=== PATIENT | male | born 1930 | race African-American/Black ===

== ENCOUNTER 2018-07-28 08:29 | Inpatient (IN) | payer MEDICARE ==
[2018-07-28 09:27] LABS: #Lymphocytes 1.2 thou/uL (1.20-3.40); #Monocytes 0.8 thou/uL (0.11-0.59); #Neutrophils 9.5 thou/uL (1.40-6.50); %Basophils 0.2 % (0.0-1.0); %Eosinophils 0.4 % (0.0-10.0); %Lymphocytes 10.6 % (21.0-51.0); %Monocytes 7.2 % (0.0-10.0); %Neutrophils 81.6 % (42.0-75.0); Hemoglobin 15.8 g/dL (14.0-18.0); Mean Corpuscular HGB CONC 31.8 g/dL (32.0-36.0); Mean Corpuscular Hemoglobin 28.9 pg (27.0-31.0); Mean Corpuscular Volume 90.8 fL (78.0-98.0); Mean Platelet Volume 7.8 fL (7.4-10.4); Platelet Count 178 thou/uL (130-400); RBC Distribution Width 13.7 % (11.5-14.5); Red Blood Cell (RBC) Count 5.46 mill/uL (4.70-6.10); White Blood Cell (WBC) Count 11.7 thou/uL (4.8-10.8)
[2018-07-28 11:08] LABS: Bilirubin Small (Negative); Blood, Urine Trace (Negative); Glucose, Urine (Dipstick) Negative (Negative); Leukocyte Negative (Negative); Nitrite Negative (Negative); Protein, Urine (Dipstick) Trace mg/dL (Neg-Trace); Urobilinogen 0.2 mg/dL (0.2-1.0); pH, Urine 5.5 (5.0-9.0)
[2018-07-28 11:13] LABS: Clarity Clear (Clear); Specific Gravity, Urine 1.022 (1.002-1.036)
[2018-07-28] MEDS ORDERED: Iopamidol 370 76% 100 ML VIAL ONE (11:19)
[2018-07-28 11:22] LABS: Bacteria/HPF None Seen HPF (None Seen); Hyaline Casts/LPF 0-3 HYALINE CAST LPF (0-3 Hyaline); Squamous Epithelial 0-3 HPF (0-3); WBC/HPF 0-3 HPF (0-3)
[2018-07-28 11:34] LABS: Albumin 5.1 g/dL (3.4-4.8); Chloride 103 mmol/L (98-107); Globulin 3.9 g/dL (2.4-3.5); Glucose 139 mg/dL (83-110); Potassium 4.1 mmol/L (3.5-5.1); Sodium 143 mmol/L (136-145)
[2018-07-28 11:37] LABS: Carbon Dioxide 24 mmol/L (23-31)
[2018-07-28 11:38] LABS: Anion Gap 20 mmol/L (10-20); BUN (Urea Nitrogen) 27 mg/dL (8.4-25.7); Calc. Creatinine Clearance 0 mL/min (70-130); Estimated GFR-MDRD 46
[2018-07-28 11:41] LABS: ALT (SGPT) 18 U/L (8-55); AST (SGOT) 26 U/L (5-34); Alkaline Phosphatase 91 U/L (40-150); Bilirubin, Total 1.4 mg/dL (0.2-1.2); Calcium 12.1 mg/dL (7.8-10.44); Lipase 7 U/L (8-78)
[2018-07-28] MEDS ORDERED: Benzonatate 100 MG CAP PO PRN (13:45)
[2018-07-28] MEDS ORDERED: cloNIDine 0.1 MG TAB PO PRN (13:45)
[2018-07-28] MEDS ORDERED: Acetaminophen 325 MG TAB PO PRN (13:45)
[2018-07-28] MEDS ORDERED: Bisacodyl 5 MG TAB PO PRN (13:45)
[2018-07-28] MEDS ORDERED: Ondansetron PF 4 MG/2 ML Vial IVP PRN ×2 (13:45)
[2018-07-28] MEDS ORDERED: Diabetic Tussin 200 MG/10 ML UDCUP PO PRN (13:45)
[2018-07-28] MEDS ORDERED: Calcium Carbonate 500 MG ChewTAB PO PRN (13:45)
[2018-07-28] MEDS ORDERED: hydrALAZINE 20 MG/ML VIAL SLOW IVP PRN (13:45)
[2018-07-28] MEDS ORDERED: Senokot S 8.6-50 MG TAB PO PRN ×2 (13:45)
[2018-07-28] MEDS ORDERED: Nitroglycerin 0.4 MG TAB (25 Tab Bottle) SL PRN (13:45)
[2018-07-28] MEDS ORDERED: Polyethylene Glycol 3350 17 GM Packet PO PRN (13:59)
[2018-07-28] MEDS ORDERED: Amlodipine 5 MG TAB PO SCH (14:00)
--- NOTE | 2018-07-28 14:57 | HP ---
PRIMARY CARE PHYSICIAN: None. CHIEF COMPLAINT: Inability to urinate and abdominal discomfort due to this. HISTORY OF PRESENTING ILLNESS: Mr. Correa is an 88-year-old male with unknown past medical history as he does not follow up with any physicians, who presented to the ER with above-mentioned complaint. History is mainly obtained by his son and [id number] present in the room. The patient is a very poor historian. Does not talk much and is also unfortunately extremely hard of hearing. When asked, he states that he has not been able to urinate for the last 2 weeks properly. For the last week, he only dribbles just few drops. He was also having some discomfort in the abdomen due to this and decided that it is time to get it checked out. He denies any nausea or vomiting, but he is also very constipated. Denies any blood in his urine whenever he is able to pee few drops. There is no blood in his stools. He has about 10-pound weight loss over the course of 1 year, but his appetite has been good. He denies any fever, chills, or night sweats. Upon presentation to the emergency room, he was quite hypertensive with a blood pressure of 177/99, pulse of 73, saturating 100% on room air, respirations 18. His workup showed acute renal insufficiency with creatinine 1.71 and hypercalcemia with a calcium of 12.1. Urinalysis had a trace blood in bilirubin, otherwise unremarkable. He is now being admitted for urinary retention and hypercalcemia. He has not received any treatment in the ER so far. However, Amador catheter has been placed in, which showed return of almost a liter of normal colored somewhat maybe dark urine. PAST MEDICAL HISTORY: None. According to the patient, he does not take any medication, but appears to have undiagnosed hypertension. PAST SURGICAL HISTORY: No surgeries done to him according to himself. SOCIAL HISTORY: The patient lives alone by himself and is fairly independent. His family lives close by and help him if he needs to. CODE STATUS: Full code discussed with the patient and his family members present at bedside. HOME MEDICATIONS: None. ALLERGIES: NONE. FAMILY HISTORY: No significant family history of any carcinomas. There is no history of premature coronary artery disease or stroke. REVIEW OF SYSTEMS: A 12-point review of systems is done and is negative except for those mentioned in history and physical. LABORATORY DATA: His CBC shows WBCs of 11.7 with 81% neutrophils, otherwise the differential is unremarkable. Serum chemistries show BUN of 27, creatinine 1.71, calcium of 12.1, total bilirubin 1.4. LFTs otherwise unremarkable. Blood sugar 139, total protein 9.0, albumin 5.1, globulin 3.9. Urinalysis, trace blood and small bilirubin, otherwise unremarkable. PHYSICAL EXAMINATION: VITAL SIGNS: Upon presentation; blood pressure 173/99, pulse of 73, respirations 18, saturating 100% on room air, and temperature 98.5. GENERAL: No acute distress. Lying comfortably in bed. Awake, alert, and oriented x3. HEENT: Mucous membrane is slightly dry. No oropharyngeal exudate or erythema. Head is normocephalic and atraumatic. Pupils are equal and reactive to light and accommodation. Extraocular movement intact. NECK: Supple without any lymphadenopathy, JVD, or bruit. CHEST: Clear to auscultation without any wheezing, rales, or rhonchi. HEART: Rate rhythm is regular without any murmurs, rubs, or gallops. ABDOMEN: Soft, nontender, nondistended with positive bowel sounds. GENITOURINARY: Show significantly large left-sided inguinal hernia with mild penile and scrotal swelling. The patient reports that this is rather chronic for him and has been there for years. EXTREMITIES: Free of any cyanosis, clubbing, or edema. NEUROLOGIC: Nonfocal. SKIN: Free of any rashes or bruises. Feels warm and dry to touch. IMPRESSION AND PLAN: 1. Urinary retention. The patient had immediate relief with placement of the Amador catheter with return of almost 1 L of urine. At this time, the cause of his rather acute urinary retention is unclear. I am suspecting either BPH or other entities like metastatic prostate cancer with hypercalcemia versus multiple myeloma or plasmacytoma because of that. We will continue the Amador catheter. Check the urinalysis and consult Urology. A stat CT scan will be ordered to rule out any up stream obstruction, though the obstruction seems to be in the bladder outlet. 2. Hypercalcemia. The patient's hypercalcemia is rather new and it is concerning in the phase of hyperproteinemia and renal failure. As above, we will rule out multiple myeloma as well as metastatic prostate cancer. PSA has been ordered and we will check serum and urine electrophoresis as well as immunofixation for free, heavy, and light chains. Currently, he is not spilling any protein in his urine. CT scan of the abdomen and pelvis has also been ordered for the same reason. Urine culture will be followed. He will be treated with IV fluids. We will monitor serum calcium levels and also sent for a parathyroid hormone level to rule out primary hyperparathyroidism as a cause. 3. Acute renal insufficiency. Once again, this might most likely be secondary to bladder outlet obstruction. IV fluids and Amador catheters have been started. We will monitor closely and avoid nephrotoxic medications. 4. Uncontrolled hypertension. The patient most likely has undiagnosed hypertension. We will start him on amlodipine and add p.r.n. antihypertensives. Avoid EILEEN inhibitors and ARBs in the phase of acute renal insufficiency. 5. Inguinal hernia. I am not sure if this is contributing to the current symptoms. CT scan of the abdomen and pelvis has been ordered to rule out any incarceration or small-bowel obstruction as the patient also presents with significant constipation and urinary retention. If he does indeed have evidence of any of such, we will consult General Surgery for surgical correction. 6. Obstipation, use bowel regimen and check CT scan to rule out obstruction, though it is less likely as the patient is not having any nausea or vomiting. He has good appetite as well. 7. Hyperbilirubinemia, outpatient followup. LFTs unremarkable. Doubt it is significant for now. 8. Hyperglycemia. We will check hemoglobin A1c. The patient has not seen a physician in multiple years. 9. Consult OT/PT. 10. Code status, full code, discussed with the patient, his son and [id number] present in the room. 11. Deep venous thrombosis and gastrointestinal prophylaxis and p.r.n. medication orders. DISPOSITION: Mr. Correa is currently being admitted to the hospital with acute urinary retention and hypercalcemia and renal failure. He is hemodynamically stable and will be admitted to medical floor. Estimated length of stay at this time is at least 2 to 3 midnights. Job ID: [id number]
[2018-07-28 15:07] LABS: Hemoglobin A1c 8.9 % (4.0-6.0)
--- NOTE | 2018-07-28 15:28 | CT ---
CT ABDOMEN WITH AND WITHOUT IV CONTRAST CT PELVIS WITH AND WITHOUT IV CONTRAST: Date: 07/28/18 HISTORY: Urinary retention, acute renal insufficiency, hypercalcemia. COMPARISON: 07/30/10. FINDINGS: There is linear scarring versus atelectasis in the region of the right middle lobe and in the region of the major fissure on the right. There is mild dependent bibasilar atelectasis. As noted on the prior examination, there is an IVC filter again in place. There are postsurgical changes related to endovascular repair of abdominal aortic aneurysm. No signif icant aneurysm sac is present and there is enhancement within the endograft and including the iliac l imbs of the endograft. There is a small focal area of eccentric atherosclerotic plaque seen within the most proximal abdomin al aorta just above the level of the celiac artery. A few subcentimeter, too small to characterize, hypodense lesions are seen in each kidney. There is a subcentimeter, too small to characterize, hypodense lesion within the anterior segment of the right hepatic lobe. The liver, pancreas, and bilateral adrenal glands demonstrate a normal CT appearance. Again noted is a left inguinal hernia which contains loops of small bowel. A greater number of small bowel loops are present within the hernia on today's exam compared to the prior study. There are a fe w dilated fluid-filled loops of small bowel within the abdomen and pelvis. More proximal small bowel loops are normal in caliber. Dilated loops of small bowel do extend to the level of the hernia. Devel oping partial small bowel obstruction secondary to the hernia is a possibility. A few scattered colonic diverticula are seen within the colon. No free fluid or fluid collection is seen in the abdomen or pelvis. There is no evidence of lymphaden opathy. The prostate gland is enlarged and measures 6.0 cm in transverse dimension with slight heterogeneity present. Mild degenerative changes are seen in the spine. IMPRESSION: 1. Dilated loops of fluid-filled small bowel within the lower abdomen and pelvis, and some of these dilated loops of small bowel do extend up to the left inguinal hernia which contains loops of small b owel, and findings may be related to developing partial small bowel obstruction due to the left ingui nal hernia. 2. Subcentimeter, too small to characterize hypodense lesions in each kidney. 3. No renal or ureteral calculi are seen bilaterally, and there is no evidence of hydronephrosis. 4. Amador catheter is present in a decompressed urinary bladder. There is increased density within th e urinary bladder. This is overall nonspecific. Hemorrhage within the urinary bladder cannot be entir karsten excluded. 5. Enlargement of the prostate gland. 6. Postsurgical changes related to endovascular repair of abdominal aortic aneurysm. 7. Fat-containing ventral abdominal wall hernia, also noted on prior exam. Findings discussed with Dr. Dill on 07/28/18 at 1503 hours. CODE CR. POS: LUKE
[2018-07-28] MEDS: Sodium Chloride 0.9% 1,000 ML IV SCH (16:15)
[2018-07-28] MEDS ORDERED: HumaLOG 300 UNITS/3 ML VIAL SC PRN ×2 (16:33)
[2018-07-28] MEDS ORDERED: Dextrose 50% Abboject 50 ML SYRINGE SLOW IVP PRN (16:33)
[2018-07-28] MEDS ORDERED: Dextrose 5% in Water 1,000 ML IV PRN (16:33)
[2018-07-28 17:02] VITALS: BMI 26.6
[2018-07-28] MEDS ORDERED: Prevnar 13-Val Conj/PF 0.5 ML SYRINGE IM ONE (21:00)
[2018-07-28] MEDS: Famotidine 20 MG TAB PO SCH (21:56)
[2018-07-28] MEDS: Heparin 5,000 UNITS/ML VIAL SC SCH (21:57)
[2018-07-28] MEDS: Tamsulosin HCl 0.4 MG CAP PO SCH (21:57)
--- NOTE | 2018-07-29 00:31 | CON ---
DATE OF CONSULTATION: 07/28/2018 TYPE OF CONSULTATION: Urology Inpatient Consultation. REASON FOR CONSULTATION: Urinary retention. HISTORY OF PRESENT ILLNESS: Mr. Correa is an 88-year-old male with no known past urologic history, who presented with a 1-week history of difficulty voiding. The patient states that over the past 1 to 2 weeks, he has had urinary urgency, but only is able to void a very small amount of urine in a weak stream. The patient was having some low abdominal discomfort. No flank pain. No nausea or vomiting. He reports he has been constipated throughout this time as well. The patient has no history of prostate enlargement and does not take any BPH medications. No family history of prostate cancer to his knowledge. No gross hematuria. He reports he has had a 10-pound weight loss over the course of a year, but reports a good appetite. No other complaints. REVIEW OF SYSTEMS: The patient is a poor historian and we were unable to obtain a full review of systems. PAST MEDICAL HISTORY: Hypertension. PAST SURGICAL HISTORY: None. FAMILY HISTORY: Noncontributory. SOCIAL HISTORY: The patient lives alone in [place]. No tobacco use or alcohol use. HOME MEDICATIONS: Lisinopril. ALLERGIES: NO KNOWN DRUG ALLERGIES. PHYSICAL EXAMINATION: VITAL SIGNS: Temperature is 97.4, heart rate 63, blood pressure 179/81, and oxygen saturation 98% on room air. GENERAL: He is awake and alert, in no apparent distress. HEENT: Normocephalic, atraumatic. NECK: Supple. No masses or lymphadenopathy. CARDIOVASCULAR: Regular rate and rhythm. PULMONARY: Breathing unlabored. ABDOMEN: Soft, thin, nontender/nondistended. No masses or organomegaly. No suprapubic tenderness to palpation. No CVA tenderness. GENITOURINARY: Uncircumcised penis with paraphimosis in place, which was reduced. His right testicle is palpably normal. Large left reducible inguinal hernia, left testicle normal. Amador catheter in place draining clear yellow urine. EXTREMITIES: Warm and well perfused. No edema. NEUROLOGIC: No focal deficits. LABORATORY DATA: White blood cell count 11.7, hemoglobin 15.8, hematocrit 49.6, platelets 178. Sodium 143, potassium 4.1, chloride 103, bicarb 24, BUN 27, creatinine 1.71, calcium 12.1. Urinalysis with trace blood, but was after Amador. RADIOLOGY DATA: CT of the abdomen and pelvis without contrast. Films were reviewed. There is no hydroureteronephrosis present. There are renal cysts present. No renal masses. The bladder appears somewhat thickened. Amador catheter is in place with a decompressed bladder. Large left inguinal hernia. See radiology report for details. ASSESSMENT: An 88-year-old male with urinary retention, acute kidney injury likely secondary to bladder outlet obstruction, BPH with bladder outlet obstruction, paraphimosis. PLAN: I reviewed the natural history and clinical implications of acute urinary retention with the patient in detail. This is likely secondary to BPH with bladder outlet obstruction. We will start the patient on tamsulosin. We will leave Amador catheter in place at this time. He will need tamsulosin for 48 to 72 hours prior to a voiding trial. If the patient is discharged in the interim, he can be discharged home with his catheter on tamsulosin and follow up with Urology within 3 to 5 days for voiding trial. If the patient is unable to void, he may require additional workup. Regarding the patient's paraphimosis, this was likely present since the time of Amador catheter placement. This was reduced with minimal discomfort at the bedside. Job ID: [id number]
--- NOTE | 2018-07-29 00:44 | HP ---
HISTORY OF PRESENT ILLNESS: Hugo Correa is an 88-year-old black male patient, who lives in [place]. He takes care of himself. He is independent in his affairs. He walks independently. He has a left inguinal hernia for many years. He reported to the emergency room with urinary retention. Amador catheter was placed, draining 1000 mL urine. Urology has seen him. CAT scan of the abdomen and pelvis revealed some mildly dilated small bowel loops in the left inguinal hernia. Evident was aortoiliac endovascular prosthesis and IVC filter, prostate enlargement, fat containing ventral hernia. The patient states that over the past several days, he has not been able to have a bowel movement and has not voided. He reports passing flatus. He denies abdominal distention. He denies nausea. He denies vomiting. He has never had a colonoscopy. ALLERGIES: NONE. MEDICATIONS: At home, not known. Flomax has been started here. Stool softeners, insulin sliding scale. LABORATORY DATA: His calcium was elevated also to 12. PSA was normal. White count 11, hemoglobin 15. BUN 27, creatinine 1.71, GFR 46. PAST SURGICAL HISTORY: April 2007, Dr. Coreas performed infrarenal aortic aneurysm repair and repair of fistula between the aneurysm. IVC filter placement with Cordis TrapEase device because of his left lower extremity DVT. 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 Dr. Coreas reported past cholecystectomy through a midline abdominal incision. PAST MEDICAL HISTORY: BPH with urinary retention currently, TRAN due to urinary obstruction this hospitalization, hypercalcemia diagnosis and hospitalization, normal PTH, normal PSA. PHYSICAL EXAMINATION: VITAL SIGNS: Height 5 foot 7 inches, 169 pounds, 97.4, 63, 179/81, 98% saturation. HEAD, EARS, EYES, NOSE AND THROAT: Unremarkable. LUNGS: Clear to auscultation. CARDIAC: Regular rate and rhythm without murmur or gallop. ABDOMEN: Soft, nontender, and nondistended. Midline wound about his umbilicus. Small hernia, easily reducible. Left inguinal into scrotum, reducible with constant pressure, completely reducible. Testicles, normal. EXTREMITIES: Unremarkable. LABORATORIES: Noted above. ASSESSMENT AND PLAN: 1. Left inguinal hernia. This is easily reducible. I suspect he more has an ileus related to his acute kidney injury and urinary obstruction. We would follow this. He is asymptomatic from his hernia. He might benefit from hernias repaired in the future, but we can address this at a later time unless clinical status changes. 2. Acute kidney injury. 3. Urinary retention, 1 L status post Amador catheter placement. Urology consultation pending. 4. Acute kidney injury. 5. Hypercalcemia. 6. IVC filter placement with history of left deep venous thrombosis. 7. 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 Job ID: [id number]
[2018-07-29] MEDS: Sodium Chloride 0.9% 1,000 ML IV SCH (00:52)
[2018-07-29 07:37] LABS: Anion Gap 11 mmol/L (10-20); BUN (Urea Nitrogen) 17 mg/dL (8.4-25.7); Calc. Creatinine Clearance 51 mL/min (70-130); Calcium 9.5 mg/dL (7.8-10.44); Carbon Dioxide 23 mmol/L (23-31); Chloride 108 mmol/L (98-107); Estimated GFR-MDRD 75; Glucose 90 mg/dL (83-110); Potassium 4.1 mmol/L (3.5-5.1); Sodium 138 mmol/L (136-145)
[2018-07-29 07:45] LABS: Hemoglobin 13.4 g/dL (14.0-18.0); Mean Corpuscular HGB CONC 31.4 g/dL (32.0-36.0); Mean Corpuscular Hemoglobin 29.2 pg (27.0-31.0); Mean Corpuscular Volume 92.9 fL (78.0-98.0); Platelet Count 165 thou/uL (130-400); RBC Distribution Width 13.4 % (11.5-14.5); Red Blood Cell (RBC) Count 4.59 mill/uL (4.70-6.10); White Blood Cell (WBC) Count 5.9 thou/uL (4.8-10.8)
[2018-07-29 08:22] LABS: % Free PSA 29.4 % (.); Total PSA 1.6 ng/mL (0.0-4.0)
[2018-07-29] MEDS ORDERED: CEFAZOLIN/Water 2 GM/20 ML SYRINGE SLOW IVP SCH (08:30)
[2018-07-29] MEDS: Amlodipine 5 MG TAB PO SCH (08:44)
[2018-07-29] MEDS ORDERED: CEFAZOLIN 2 GM/50 ML-DEXTROSE 2 GM in Premix Bag 1 BAG IVPB SCH (08:45)
[2018-07-29] MEDS: Heparin 5,000 UNITS/ML VIAL SC SCH ×2 (08:49→19:57)
[2018-07-29 09:27] LABS: Band 3 % (5-11); Eosinophils 2 % (0-10); Lymphocytes 21 % (21-51); MDiff Complete? YES; Monocytes 7 % (0-10); Neutrophil 66 % (42-75); RBC Morphology Normal
--- NOTE | 2018-07-29 09:43 | PRG ---
DATE OF SERVICE: 07/29/2018 SUBJECTIVE: After further discussion with Mr. Correa considering his calcium, renal function has returned to normal. Plan is to undergo robotic mesh repair left inguinal hernia, Saturday tomorrow. He understands risks and benefits, and we will plan this tomorrow. Understood risks of infection, bleeding, reoperation, and recurrence of the hernia. Job ID: [id number]
--- NOTE | 2018-07-29 09:48 | PRG ---
DATE OF SERVICE: 07/29/2018 SUBJECTIVE: Mr. Correa is doing well today. He is tolerating his diet. He has not had any nausea or vomiting. OBJECTIVE: VITAL SIGNS: Temperature 98.1 degrees, heart rate 50, blood pressure 126/67. LUNGS: Clear to auscultation. CARDIAC: Regular rate and rhythm without murmur or gallop. ABDOMEN: Soft, nontender, and nondistended. His left inguinal hernia has remained reduced since I reduced yesterday. LABORATORY DATA: This morning, his white count is 5, hemoglobin 13. His basic metabolic profile is normal. His creatinine has returned to normal with hydration. GFR is 75. Hemoglobin A1c 8.9. Accu-Cheks 95 to 107. His calcium is returned to normal at 9.5. His urine output is 2300. ASSESSMENT AND PLAN: The patient is doing well today. His renal function returned to normal. His calcium is normalized with hydration. His PTH intact was normal. At this point, with a normal alkaline phosphatase, the patient could have robotic left inguinal hernia repair with mesh done in the morning. We will discuss this with him, also discuss with family and think about it. We could do this later time as an outpatient. The patient wants to think about this and talk to his family. We will await his decision. If he decides to go home, I could see him in the office as an outpatient. I have discussed with him at a later date. He will need to be discharged home with the Amador catheter and follow up with Urology regarding his bladder outlet obstruction. I will ask the nurses to train him in Amador catheter management leg bag use. Job ID: [id number]
--- NOTE | 2018-07-29 11:28 | PRG ---
DATE OF SERVICE: 07/29/2018 SUBJECTIVE: The patient is seen and examined at the bedside. His daughter is present in the room during my visit. He does not have much complaints to offer. No chest pain. No shortness of breath. He was able to eat breakfast and he had bowel movement this morning. OBJECTIVE: VITAL SIGNS: Blood pressure is 126/67, pulse is 50, temperature is 98.1, respiratory rate 16, O2 saturation is 95% on room air. HEENT: His head is atraumatic and normocephalic. Eyes are PERRLA. Sclerae are nonicteric. Oral mucosa is moist. NECK: Supple. No lymphadenopathy. Thyroid is not palpable. LUNGS: Clear. HEART: S1, S2 normal. No S3. No S4. Bradycardic. No murmur. ABDOMEN: Soft, nontender. Bowel sounds are present. No organomegaly. There is inguinal hernia in the left groin, not incarcerated. EXTREMITIES: No clubbing, cyanosis, or edema. NEUROLOGIC: He is alert and oriented x4. There is no any motor or sensory deficits present. Cranial nerves are intact. LABORATORY DATA: Labs showed white count of 5.9, hemoglobin 13.4, hematocrit 42.6, platelet count is 165,000. Sodium 130, potassium 4.1, chloride 108, CO2 of 23, BUN is 17, creatinine 1.12. His calcium is down to 9.5. PSA 0.47, intact PTH 45.0. IMPRESSION: 1. Urinary retention, status post placement of Amador catheter and return of almost 1 L of urine. The patient was seen by urologist and he was started on Flomax. 2. Hypercalcemia with normal PTH. The diagnostic workup for multiple myeloma is still pending. 3. Acute renal insufficiency, improved with relief of obstruction in the urinary system. 4. Uncontrolled hypertension, improved. 5. Inguinal hernia, not incarcerated, for future treatments by general surgeon. 6. Obstipation, resolved. The patient had bowel movement this morning. 7. Hyperbilirubinemia of unclear significance. 8. Hyperglycemia. The patient was seen by OT and PT and he is able to ambulate today without any major problems. 9. Bradycardia. The patient is not taking any beta jeanine. He is on amlodipine for blood pressure control, so we are going to watch his bradycardia. He is asymptomatic. I am going to stop his calcium. Job ID: [id number]
[2018-07-29] MEDS: Famotidine 20 MG TAB PO SCH (19:57)
[2018-07-29] MEDS: Tamsulosin HCl 0.4 MG CAP PO SCH (19:57)
[2018-07-30] MEDS ORDERED: CEFAZOLIN 2 GM/50 ML BAG ONE (06:31)
[2018-07-30] MEDS ORDERED: Fentanyl 100 MCG/2 ML VIAL ONE (06:31)
[2018-07-30] MEDS ORDERED: Bupivacaine/Epinephrine 0.25% 30 ML VIAL ONE ×2 (06:45→08:30)
[2018-07-30] MEDS ORDERED: Lactated Ringer's 1,000 ML IV SCH (07:00)
[2018-07-30] MEDS ORDERED: Bupivacaine HCl 0.5%/Epinephrine 1:200,000/PF 30 ml Vial ONE (08:30)
[2018-07-30] MEDS ORDERED: Ondansetron HCl/PF 4 MG/2 ML Vial IVP PRN (10:12)
[2018-07-30] MEDS ORDERED: Promethazine HCl 25 MG/ML VIAL SLOW IVP PRN (10:12)
[2018-07-30] MEDS ORDERED: Promethazine HCl 25 MG/ML VIAL IM PRN (10:12)
[2018-07-30] MEDS ORDERED: traMADol HCl 50 MG TAB PO PRN ×2 (10:18)
[2018-07-30] MEDS ORDERED: Acetaminophen 325 MG TAB PO SCH (11:00)
[2018-07-30] MEDS ORDERED: PROPOFOL 200 MG/20 ML VIAL ONE (15:21)
[2018-07-30] MEDS ORDERED: Lidocaine 1% PF 5 ML VIAL ONE (15:21)
[2018-07-30] MEDS ORDERED: Ondansetron PF 4 MG/2 ML Vial ONE (15:21)
[2018-07-30] MEDS ORDERED: Dexamethasone 20 MG/5 ML VIAL ONE (15:21)
[2018-07-30] MEDS ORDERED: PHENYLEPHRINE-NS 100 MCG/ML 10 ML SYRINGE ONE (15:21)
[2018-07-30] MEDS ORDERED: Glycopyrrolate 0.2 MG/ML 5 ML SYRINGE ONE (15:21)
[2018-07-30] MEDS ORDERED: Rocuronium Bromide 10 MG/ML (10ML VIAL) ONE (15:21)
[2018-07-30] MEDS ORDERED: ePHEDrine/0.9% NaCl/PF SYRINGE 50 mg/10 ml ONE (15:21)
--- NOTE | 2018-07-30 15:24 | PRG ---
DATE OF SERVICE: 07/30/2018 SUBJECTIVE: He just came back from operation. Dr. Cui did a hernia repair on him this morning. He is quite drowsy, but able to respond when prompt. OBJECTIVE: NECK: Supple. LUNGS: Clear. HEART: S1 and S2, normal. No S3. No S4. No any murmur. ABDOMEN: bowel sounds are very sluggish. EXTREMITIES: No clubbing, cyanosis, or edema. NEUROLOGIC: Postponed since he is still under influence of anesthesia. LABORATORY DATA: Glycemia is ranging from 99 to 148. Microbiology, urine culture negative. IMPRESSION: 1. Urinary retention, status post placement of Amador catheter and return of almost 1 L of urine. The patient was seen by urologist, Flomax was started, and outpatient followup recommended. 2. Hypercalcemia with normal PTH and diagnostic workup for multiple myeloma workup is still pending. 3. Status post hernia repair, left inguinal hernia. 4. Acute renal insufficiency, improved with relief of obstruction in the urinary system. 5. Uncontrolled hypertension, improved. 6. Obstipation, resolved. 7. Hyperlipidemia. 8. Hyperglycemia, mild. 9. Bradycardia, resolved. PLAN: Plan is to keep him overnight since he just had surgery and release him home tomorrow morning when he is stable clinically. Job ID: [id number]
[2018-07-30] MEDS: Amlodipine 5 MG TAB PO SCH (16:06)
--- NOTE | 2018-07-30 16:28 | OP ---
DATE OF PROCEDURE: 07/30/2018 PREOPERATIVE DIAGNOSES: Incarcerated left inguinal hernia, recovered acute kidney injury from bladder outlet obstruction with a Amador catheter placed 1 L residual. Followup with Urology at home with this Amador. POSTOPERATIVE DIAGNOSES: Incarcerated left inguinal hernia, recovered acute kidney injury from bladder outlet obstruction with a Amador catheter placed 1 L residual. Followup with Urology at home with this Amador. Adhesions from prior surgery and incisional hernia just above his umbilicus midline periumbilical incision. PROCEDURES PERFORMED: Laparoscopic 3DMax large repair of incarcerated left inguinal hernia. Laparoscopic adhesiolysis using the ligature to gain access to the operative site and docking and placement of the robot robot procedure. ANESTHESIA: General, local 0.25% Marcaine with epinephrine 20 mL. DESCRIPTION OF PROCEDURE: The patient was taken to the operating room, where under general anesthesia, abdomen was prepared with ChloraPrep and draped in routine fashion. Local anesthetic was infiltrated in the skin and subcutaneous tissue about the port sites. Because of a periumbilical midline incision left lateral just above the level of umbilicus, incision was made. Pneumoperitoneum to 15 mmHg was obtained with a Veress needle, replaced it with an 8 port and robotic scope placed. There were adhesions in the midline. Manipulating the scope and we could find a safe access in the right lateral subcostal area above the umbilical level and another 8 mm port site, the robotic scope moved to this. There were adhesions around this area. We could see well enough; however, to make a more medial left and right incision and 5 mm port was placed and the laparoscope placed, and laparoscopic adhesiolysis performed, freeing the omental adhesions from the anterior abdominal wall in the midline. There was an incisional hernia to the left of midline from a previous midline incision. These were carefully taken down, omentum reduced from the hernia defect to allow access to the left inguinal hernia. Once this was cleared, a supraumbilical incision was made and an 11 mm balloon port placed and robotic scope placed. After docking the robot, left inguinal hernia repair was undertaken. Peritoneal flap was dissected free from the anterior superior iliac spine to the midline, dissected free, clearing this down towards the hernia sac, which was very large into the scrotum. The hernia sac was dissected free, reduced in the abdominal cavity free from the cord structures, preserving the inferior epigastric vessels . The Bob ligament was identified. After adequate dissection, freeing the cord structures for at least 8 cm, a 3DMax large mesh was placed laparoscopically, oriented properly and secured in the medial portion to Bob ligament with 2-0 Vicryl. The mesh was properly positioned to cover the defect and secured to the anterior abdominal wall anteriorly to the patient's left of the inferior epigastric vessels with a 2-0 Vicryl. Once the mesh was properly positioned and good hemostasis was noted, the peritoneal flap closed with continuous suture of #2-0 V-Loc x2. Once this was accomplished, pneumoperitoneum reduced. All instruments were removed. All skin incisions were approximated with interrupted subdermal 4-0 Monocryl and [place] glue applied. Note, the patient has an incisional hernia and this can be repaired at a later time. This was not repaired at this operation. Job ID: [id number]
[2018-07-30] MEDS: Acetaminophen 500 MG TAB PO SCH (17:33)
[2018-07-30] MEDS: Heparin 5,000 UNITS/ML VIAL SC SCH (19:36)
[2018-07-30] MEDS: Famotidine 20 MG TAB PO SCH (20:33)
[2018-07-30] MEDS: Tamsulosin HCl 0.4 MG CAP PO SCH (20:33)
[2018-07-30] MEDS ORDERED: Enoxaparin Sodium 40 MG/0.4 ML SYRINGE SC SCH (21:00)
[2018-07-31] MEDS: Acetaminophen 500 MG TAB PO SCH ×2 (00:57→05:41)
[2018-07-31 07:56] VITALS: BP 147/71; TEMP 98.5
[2018-07-31] MEDS: Amlodipine 5 MG TAB PO SCH (08:21)
[2018-07-31 15:31] LABS: Alpha 1 - Ur 12.7 % (.); Alpha 2 - Ur 6.4 % (.); Beta-Ur 12.1 % (.); Gamma-Ur 15.8 % (.); M-Spike,% Not Observed % (Not Observed)
--- NOTE | 2018-08-01 03:53 | DIS ---
DATE OF ADMISSION: 07/28/2018 DATE OF DISCHARGE: 07/31/2018 FINAL DIAGNOSES: 1. Urinary retention, status post placement of Amador catheter. 2. Hypercalcemia with normal PTH and diagnostic workup for multiple myeloma in progress. 3. Acute renal insufficiency, resolved with urinary tract obstruction and relief. 4. Left inguinal hernia, status post left inguinal hernia repair during this hospitalization. 5. Uncontrolled hypertension, improved. 6. Obstipation, resolved. 7. Hyperlipidemia. 8. Suspected diabetes mellitus. 9. Bradycardia, resolved. MUD ANALYSIS WELL LOGGING CAPTAIN: Ian Cui MD, General Surgery. PROCEDURE: Laparoscopic 3DMax large repair of incarcerated left inguinal hernia along with laparoscopic adhesiolysis. HOSPITAL COURSE: The patient is an 88-year-old -[place] male with inability to urinate and abdominal discomfort due to that. Apparently, he was not able to urinate properly for a couple of weeks prior to this hospitalization. He denied any fever, chills, or night sweats. There was some weight loss in 1 year. Upon presentation, his blood pressure was elevated at 177/99. Pulse oximetry was 100% on room air. His calcium was elevated at 12.1 and creatinine was 1.71. There was some suspicion that he might have multiple myeloma. A Amador catheter was placed and that returned more than 1 L of dark urine. The patient got admitted to the hospital. He was seen by urologist, Dr. Bonifacio Fu, who recommended tamsulosin and keep the Amador in and told to followup with him in next few days to do the voiding trial after removal of the catheter. CT of the abdomen and pelvis at the time of admission showed: 1. Dilated loops of fluid-filled small bowel within the lower abdomen and pelvis. 2. Subcentimeter too small to characterize hypodense lesion in each kidney. 3. Enlargement of the prostate gland. 4. Postsurgical changes related to endovascular repair of abdominal aortic aneurysm. 5. Fat containing ventral abdominal wall hernia. The patient was given IV fluids. His creatinine went back to normal range after the urinary tract obstruction was relieved and the urine was emptied from the bladder. His hypercalcemia resolved. He had some initial workup for possible multiple myeloma. His full workup is still pending although the PSA came back at 1.32, free PSA 0.47, percentage of free PSA was 29.4, and PTH intact was 45. His hypercalcemia went down from 12.1 to 9.5. His glycemia was running in good range but his hemoglobin A1c came back elevated at 8.9, which was suggestive of some diabetes mellitus probably postprandial and clinically, he is doing good. He had hernia repair by Dr. Cui yesterday. He did well and there were no postop unexpected events. His vitals today, blood pressure is 147/71, pulse is 59, respiratory rate is 18, temperature is 98.5, and O2 saturation is 95% on room air. Inhibitor was stopped and we used amlodipine but today, he is discharged home in good condition. Activities as tolerated per postop protocol after the hernia repair surgery. Diet, we will keep him on heart healthy diabetic diet. He is going to follow up with Dr. Fu next week. He will continue his Flomax, he was started during this hospitalization at 0.4 mg once a day. Also, he will be switched to 10 mg of lisinopril, the same dose, the same medication what he was taking before at home since his renal insufficiency is back to normal. He is going to have prescription for tramadol q.4 hours p.r.n. as needed for pain after the surgery. Follow up with primary care physician in a week or so and with Dr. Cui for general surgery evaluation postop in 2 weeks. This patient was seen and examined before his discharge and the discharge time is less than 30 minutes. Job ID: [id number]
[2018-08-01] MEDS ORDERED: Acetaminophen 500 MG TAB PO PRN (08:00)
[2018-08-04 16:10] LABS: IgA - Total IgA (Sendout) 418 mg/dL (61-437); Immunoglobulin - G (Sendout) 1205 mg/dL (700-1600); Immunoglobulin - M (Sendout) 12 mg/dL (15-143)
== END 2018-07-31 10:32 | disposition home or self-care (01) | DRG 351 ==
LOC: ERS 08:29 → T4-B 15:52
PROVIDERS: ADMIT Internal Medicine; ATTEND Internal Medicine
PROC: 0YU64JZ Supplement Left Inguinal Region with Synthetic Substitute, Percutaneous Endoscopic Approach (ICD-10-PCS; principal; 2018-07-30)
PROC: 8E0W4CZ Robotic Assisted Procedure of Trunk Region, Percutaneous Endoscopic Approach (ICD-10-PCS; 2018-07-30)
DX: K40.30 Unilateral inguinal hernia, with obstruction, without gangrene, not specified as recurrent (principal); N17.9 Acute kidney failure, unspecified; R33.8 Other retention of urine; E83.52 Hypercalcemia; N40.1 Benign prostatic hyperplasia with lower urinary tract symptoms; I10 Essential (primary) hypertension; K59.00 Constipation, unspecified; E80.6 Other disorders of bilirubin metabolism; N47.2 Paraphimosis; N32.0 Bladder-neck obstruction; E11.9 Type 2 diabetes mellitus without complications; R00.1 Bradycardia, unspecified; Z86.718 Personal history of other venous thrombosis and embolism; Z90.49 Acquired absence of other specified parts of digestive tract; Z98.890 Other specified postprocedural states
CPT/HCPCS: 36415; 36416; 51703; 74178; 80048; 80053; 81003; 81015; 83036; 83690; 83970; 84153; 84154; 84165; 84166; 85007; 85025; 85027; 86334; 86335; 87086; 90471; 90662; 90670; C1781; G0008; G0009; G0103; J0131; J0670; J1100; J1644; J1650; J2001; J2405; J2704; J3010

== ENCOUNTER 2018-10-03 08:30 | Day surgery (SDC) | payer MEDICARE ==
[2018-10-02 13:46] VITALS: BMI 20.7
[2018-10-03] MEDS ORDERED: Fentanyl 100 MCG/2 ML VIAL ONE (10:37)
[2018-10-03] MEDS ORDERED: Midazolam HCl 2 mg/2 ml Vial ONE (10:37)
[2018-10-03] MEDS ORDERED: Iopamidol 370 76% 100 ML VIAL ONE (11:20)
== END 2018-10-03 14:30 | disposition home or self-care (01) ==
LOC: CCL 08:30
PROVIDERS: ATTEND Internal Medicine Cardiovascular Disease
PROC: 4A023N7 Measurement of Cardiac Sampling and Pressure, Left Heart, Percutaneous Approach (ICD-10-PCS; principal; 2018-10-03)
PROC: B2111ZZ Fluoroscopy of Multiple Coronary Arteries using Low Osmolar Contrast (ICD-10-PCS; 2018-10-03)
DX: I25.10 Atherosclerotic heart disease of native coronary artery without angina pectoris (principal); I10 Essential (primary) hypertension; Z87.891 Personal history of nicotine dependence; Z79.899 Other long term (current) drug therapy
CPT/HCPCS: 93458; 99152; C1769; J1644; J2250; J3010; Q9967

== ENCOUNTER 2020-05-08 11:46 | Inpatient (IN) | payer MEDICARE, OTHER ==
[~2020-05-08 11:46] MED LIST: Iopamidol-370 76% 500 ML 1 ML ONE
[2020-05-08 12:45] LABS: Band 32 % (5-11); Lymphocytes 5 % (21-51); MDiff Complete? YES; Mean Corpuscular HGB CONC 33.7 g/dL (32.0-36.0); Mean Corpuscular Hemoglobin 30.7 pg (27.0-31.0); Mean Corpuscular Volume 91.1 fL (78.0-98.0); Mean Platelet Volume 8.1 fL (7.4-10.4); Monocytes 10 % (0-10); Neutrophil 53 % (42-75); Platelet Count 225 thou/uL (130-400); RBC Distribution Width 13.5 % (11.5-14.5); Vacuoles SLIGHT; White Blood Cell (WBC) Count 14.8 thou/uL (4.8-10.8)
[2020-05-08 12:50] LABS: ALT (SGPT) 37 U/L (8-55); AST (SGOT) 31 U/L (5-34); Albumin 4.9 g/dL (3.4-4.8); Alkaline Phosphatase 114 U/L (40-110); Anion Gap 22 mmol/L (10-20); BUN (Urea Nitrogen) 17 mg/dL (8.4-25.7); Bilirubin, Total 1.6 mg/dL (0.2-1.2); Calc. Creatinine Clearance 0 mL/min (70-130); Calcium 10.3 mg/dL (7.8-10.44); Carbon Dioxide 25 mmol/L (23-31); Chloride 96 mmol/L (98-107); Estimated GFR-MDRD 56; Globulin 3.6 g/dL (2.4-3.5); Glucose 154 mg/dL (83-110); Lipase 16 U/L (8-78); Potassium 3.5 mmol/L (3.5-5.1); Protein, Total 8.5 g/dL (5.8-8.1); Sodium 139 mmol/L (136-145)
[2020-05-08 12:52] LABS: ALT (SGPT) 38 U/L (8-55); AST (SGOT) 30 U/L (5-34); Albumin 4.8 g/dL (3.4-4.8); Alkaline Phosphatase 111 U/L (40-110); Bilirubin, Direct 0.8 mg/dL (0.1-0.3); Bilirubin, Total 1.6 mg/dL (0.2-1.2); Protein, Total 8.7 g/dL (5.8-8.1)
--- NOTE | 2020-05-08 14:23 | CT ---
CT ABDOMEN AND PELVIS WITH IV CONTRAST 05/08/2020 CLINICAL INFORMATION: Abdominal pain and abdominal distention with vomiting which has developed over last several days. COMPARISON: 07/28/2018 Technique: Multiple contiguous axial CT images are obtained through the abdomen and pelvis with IV contrast. Cor onal reformatted images are provided. FINDINGS: Lower Chest: Bibasilar atelectasis. Suggestion mild nonspecific thickening of the most distal esophag us and in the region of the gastric cardia. Vessels: Irregular atherosclerotic plaque is again seen in the proximal abdominal aorta. There is sev ere narrowing at the origin of the celiac artery which could potentially be related to arcuate ligament. Moderate atherosclerotic plaque and narrowing involves proximal superior mesenteric artery. Postoperative changes related to endograft repair of abdominal aortic aneurysm are again seen. Only a minimal aneurysm sac persists which is unchanged from prior exam. Iliac limbs of the graft are patent. IVC filter is again seen in place. Abdomen: Portal vein:Patent Gallbladder: Within normal limits for CT imaging. Liver: Stable subcentimeter hypodense lesion anterior segment right hepatic lobe. Spleen: within normal limits. Pancreas: within normal limits. Adrenals: within normal limits. Kidneys: Stable subcentimeter too small to characterize hyperdense lesions in each kidney. There is n o hydronephrosis Bowel: Dilated fluid-filled loops of small bowel are seen throughout the abdomen measuring up to 4.1 cm in diameter. There is a right inguinal hernia which contains a loop of small bowel, and this also appears to be site of the bowel obstruction. There is also a supraumbilical ventral abdominal wa ll hernia which now contains a loop of dilated bowel as well, but this is not the site of transition. The colon is mostly decompressed, and findings are suggestive of a high-grade partial sma ll bowel obstruction. Appendix: Not definitely visualized, there are no secondary signs to suggest appendicitis. Peritoneum: Minimal amount of mesenteric edema. No significant free fluid is seen, and there is no fl uid collection or lymphadenopathy in the abdomen or pelvis. Mesentery and Retroperitoneum: No enlarged mesenteric or retroperitoneal lymph nodes. Abdominal Wall: As described above. The previously seen left inguinal hernia with loops of bowel exte nding into the hernia defect is no longer visualized. There is appears to be fluid and possibly small fluid collection within the lower aspect of the left inguinal canal. Findings may be related to prior hernia repair. Pelvis: Reproductive Organs: No pelvic masses. Bladder: Incompletely distended. Bones: Degenerative changes in the spine with stable slight grade 1 anterolisthesis of L4 on L5. IMPRESSION: 1. High-grade partial small bowel obstruction with transition to normal caliber bowel at the level of a right inguinal hernia which contains a loop of small bowel. 2. Infraumbilical ventral abdominal wall hernia containing a loop of dilated bowel, but this is not s ite of obstruction. 3. Previously seen bowel containing left inguinal hernia is no longer visualized. However, there is i ncomplete visualization of what appears to be small amount of fluid or fluid collection in this region which may be related to repair of left inguinal hernia and possible small seroma in this regio n. This is difficult to further evaluate on this study. 4. Suggested thickening distal esophagus and at the gastric cardia. Follow-up upper GI or endoscopy i s recommended. 5. Additional findings as described above.
[2020-05-08] MEDS ORDERED: Ondansetron PF 4 MG/2 ML Vial ONE (14:50)
[2020-05-08] MEDS ORDERED: Morphine 4 MG/ML VIAL ONE (14:50)
[2020-05-08] MEDS ORDERED: Benzocaine 20% Spray 60 ML CAN ONE (15:03)
--- NOTE | 2020-05-08 15:38 | PDOC.HHP ---
Hospitalist HPI - History of Present Illness Abdominal pain nausea vomiting History of Present Illness: This is an 89-year-old male patient with a history of high blood pressure, cholesterol, abdominal aortic aneurysm s/p endovascular repair, urinary retention secondary to BPH, inguinal area, ventral abdominal wall area who presents with abdominal pain and distention and vomiting. The time of my assessment patient was in the room with his daughter. He was hard of hearing and she gives most of the history. Pain had been going on gradually for the to the past evaluation however got acutely worse. Pain 8/10 intensity, colicky, central abdominal. Nonradiating. He passed small stool earlier this morning with gas however this stopped later. Pain significantly resolved on admission with pain medicine and NG tube placement. At presentation blood pressure was 160/82, map 108, pulse 86, respiratory rate 16, temperature 98.4 and oxygen saturation 99 on room air. Labs showed lactate of 2.4, potassium 3.5, creatinine 1.43 from a baseline of 1.29 on 01/21/2020, WBC 14.8 with bands of 32, imaging with CT scan revealed high- grade partial small bowel obstruction with transition in the right inguinal he rnia level which contains a loop of small bowel. Also noted thickening of distal esophagus and gastric cardia with GI follow-up recommended for further evaluation. At presentation an NG tube was placed, he was given morphine for pain, ondansetron for nausea and 1 L normal saline. General surgery was consulted and recommended ongoing conservative management. Hospitalist team was consulted for admission. Hospitalist ROS - Review of Systems Constitutional: denies: fever, chills, sweats Respiratory: denies: cough, dry, shortness of breath, hemoptysis Gastrointestinal: reports: nausea, vomiting, abdominal pain. denies: diarrhea Genitourinary: denies: dysuria, frequency, incontinence, hematuria Neurological: denies: weakness, numbness, incoordination Hospitalist History - Past Medical History Cardiac: reports: CAD, HTN Other Medical History: Abdominal aortic aneurysm, hypercholesterolemia, - Past Surgical History Other Surgical History: Abdomen aortic aneurysm repair - Family History Family History: reports: no pertinent history - Social History Smoking Status: Never smoker Alcohol: reports: None Living Situation: With Family Activity level: independent ambulation Other Social History: Lives with daughter - Exam General Appearance: awake alert ENT: normocephalic atraumatic, no oropharyngeal lesions Neck: supple, symmetric, no thyromegaly Heart: RRR, no murmur, no gallops, no rubs, normal peripheral pulses Respiratory: no wheezes, no rales, no ronchi Gastrointestinal: soft, non-tender, non-distended Gastrointestinal - other findings: Diminished bowel sounds Skin: normal turgor, no lesions, no rashes Neurological: cranial nerve grossly intact, no weakness Psychiatric: normal affect, A&O x 3 Hospitalist Results - Labs Result Diagrams: 05/08/20 12:14 05/08/20 12:14 Lab results: WBC 14.8 thou/uL (4.8-10.8) H 05/08/20 12:14 Hgb 16.0 g/dL (14.0-18.0) 05/08/20 12:14 Hct 47.4 % (42.0-52.0) 05/08/20 12:14 MCV 91.1 fL (78.0-98.0) 05/08/20 12:14 Plt Count 225 thou/uL (130-400) 05/08/20 12:14 Band Neuts % (Manual) 32 % (5-11) H 05/08/20 12:14 Sodium 139 mmol/L (136-145) 05/08/20 12:14 Potassium 3.5 mmol/L (3.5-5.1) 05/08/20 12:14 Chloride 96 mmol/L (98-107) L 05/08/20 12:14 Carbon Dioxide 25 mmol/L (23-31) 05/08/20 12:14 BUN 17 mg/dL (8.4-25.7) 05/08/20 12:14 Creatinine 1.43 mg/dL (0.7-1.3) H 05/08/20 12:14 Glucose 154 mg/dL (83-110) H 05/08/20 12:14 Lactic Acid 2.4 mmol/L (0.5-2.2) H 05/08/20 12:45 Calcium 10.3 mg/dL (7.8-10.44) 05/08/20 12:14 Total Bilirubin 1.6 mg/dL (0.2-1.2) H 05/08/20 12:14 Total Bilirubin 1.6 mg/dL (0.2-1.2) H 05/08/20 12:14 AST 30 U/L (5-34) 05/08/20 12:14 AST 31 U/L (5-34) 05/08/20 12:14 ALT 37 U/L (8-55) 05/08/20 12:14 ALT 38 U/L (8-55) 05/08/20 12:14 Alkaline Phosphatase 111 U/L (40-110) H 05/08/20 12:14 Alkaline Phosphatase 114 U/L (40-110) H 05/08/20 12:14 Troponin I 0.028 ng/mL (< 0.028) 05/08/20 12:14 Serum Total Protein 8.5 g/dL (5.8-8.1) H 05/08/20 12:14 Serum Total Protein 8.7 g/dL (5.8-8.1) H 05/08/20 12:14 Albumin 4.8 g/dL (3.4-4.8) 05/08/20 12:14 Albumin 4.9 g/dL (3.4-4.8) H 05/08/20 12:14 Lipase 16 U/L (8-78) 05/08/20 12:14 Hospitalist H&P A/P - Plan Plan: This is an 89-year-old male patient with a history of abdominal aortic aneurysm status post repair, BPH with urinary retention, inguinal hernia presenting with abdominal pain secondary to small bowel obstruction. Small bowel obstruction Secondary to possible obstructed hernia/adhesions from previous abdominal surgery. Lactate slightly increased if persistent leukocytosis at 14. Pain currently improved on NG tube and pain relief. We will continue IV fluids Continue monitoring on floors. Lactate slightly increasedwe will monitor if persistent will start antibiotics Surgery following. Thickened distal esophagus and gastric cardia GI evaluation recommended GI consult Hypertension Blood pressure slightly elevated Hold lisinopril/HCT on account of slight elevation in creatinine Continue amlodipine Monitor BP VT prophylaxisLovenox CODE STATUS full code DURABLE POWER OF ATTORNEYdaughter
[2020-05-08 16:10] LABS: Lactic Acid 2.2 mmol/L (0.5-2.2)
[2020-05-08] MEDS ORDERED: Ondansetron PF 4 MG/2 ML Vial IVP PRN (16:36)
--- NOTE | 2020-05-08 16:39 | RAD ---
KUB: History: NG tube placement Comparison: CT done earlier today FINDINGS: Distended small bowel loops are again noted. Gaseous distention may be minimally decreased. NG tube i s seen within the stomach with the tip in the fundus region of the stomach. Contrast from the previou s CT is seen in the kidneys and bladder. An aortoiliac stent and IVC filter are noted. IMPRESSION: 1. Placement of an NG tube, the tip is in the fundus region of the stomach. 2. Some slight decrease to the small bowel distention. Findings compatible with small bowel obstructi on. POS: OFF
[2020-05-08 18:15] VITALS: BMI 25.1
--- NOTE | 2020-05-08 18:42 | RAD ---
KUB: History: NG tube adjustment. FINDINGS: The NG tube has been advanced slightly. The tip is still in the fundus of the stomach. No other gómez e. IMPRESSION: Advancement of NG tube with tip in the fundus of the stomach. POS: OFF
[2020-05-08] MEDS: Dextrose 5 % And 0.9 % NaCl 1,000 ML IV SCH (19:42)
[2020-05-09] MEDS: Dextrose 5 % And 0.9 % NaCl 1,000 ML IV SCH (04:03)
[2020-05-09 06:04] LABS: Anion Gap 12 mmol/L (10-20); BUN (Urea Nitrogen) 16 mg/dL (8.4-25.7); Band 32 % (5-11); Calc. Creatinine Clearance 55 mL/min (70-130); Calcium 8.5 mg/dL (7.8-10.44); Carbon Dioxide 23 mmol/L (23-31); Chloride 105 mmol/L (98-107); Eosinophils 2 % (0-10); Estimated GFR-MDRD 85; Glucose 144 mg/dL (83-110); Hemoglobin 12.2 g/dL (14.0-18.0); Lymphocytes 29 % (21-51); MDiff Complete? YES; Mean Corpuscular HGB CONC 33.7 g/dL (32.0-36.0); Mean Corpuscular Hemoglobin 31.2 pg (27.0-31.0); Mean Corpuscular Volume 92.6 fL (78.0-98.0); Monocytes 16 % (0-10); Neutrophil 21 % (42-75); Platelet Count 186 thou/uL (130-400); Potassium 3.2 mmol/L (3.5-5.1); RBC Distribution Width 13.5 % (11.5-14.5); Red Blood Cell (RBC) Count 3.93 mill/uL (4.70-6.10); Sodium 137 mmol/L (136-145); White Blood Cell (WBC) Count 4.1 thou/uL (4.8-10.8)
[2020-05-09] MEDS ORDERED: Dextrose 5 % And 0.9 % NaCl 1,000 ML IV SCH (07:48)
--- NOTE | 2020-05-09 07:59 | PDOC.GSCN ---
Surgery Consult: [facility] - Consult details Date: 05/09/20 Time: 07:57 History of present illness: 05/09/20 07:57 Chief complaint-I am feeling better History of present illness-the patient is an 89-year-old gentleman with a past medical history for hypertension, hyperlipidemia, BPH as well as a AAA who presented to the emergency room yesterday evening with a several day history of increasing abdominal pain and distention. According to his family, he had a bowel movement and was passing flatus earlier, but then began to have increasing pain. Pain is diffuse, 4 out of 10, nonradiating. Since he has been in the hospital with an NG tube, he states that he is feeling better. Does not sound like he believes he is passing flatus this morning. No bowel movements. Juma malcolm has had a similar episode of this in 2019 where he had an incarcerated left inguinal hernia. This underwent repair. Review of systems-not really obtainable secondary to age and difficulty hearing Surgery Consult: [facility] Past Medical History: Hyperlipidemia, hypertension, BPH Past Surgical History: Open AAA repair, endovascular repair, IVC filter, left inguinal hernia repair- robotic, - Past Family History Pertinent family history: No family history of anesthesia related complications - Past Social History Smoking Status: Never smoker Alcohol Use: none Surgery Consult: Exam - Vital signs Vital signs: Vital Signs - Most Recent Temp Pulse Resp BP Pulse Ox 98.1 F 64 18 114/68 93 L 05/09/20 04:02 05/09/20 04:02 05/09/20 04:02 05/09/20 04:02 05/09/20 04:02 - Physical Exam Additional exam: General-elderly gentleman, no apparent distress Head-[normocephalic, atraumatic] HEENT- [EOMI], [PERRLA] Neck-[trachea midline, supple] Lungs-[grossly clear to auscultation], [normal air movement] Heart-[regular regular], [no murmurs] Abdomen-[soft], some distention, generally not tender, [normal active bowel sounds] the right inguinal hernia has been reduced, patient has an incisional hernia that is easily reducible Musculosketal-[full range of motion], [no gross deformity] Psychiatric-[good insight, good judgment] Skin-[good turgor, no jaundice] Neuro- [GCS 15], [CN II-XII intact] Surgery Consult: Meds - Medications Medications: Current Medications Enoxaparin Sodium (Enoxaparin Sodium 40 Mg/0.4 Ml Syringe) 40 mg SC 0900 [facility] Potassium Phosphate 30 mmol/ (Sodium Chloride) 260 mls @ 43.333 mls/hr IVPB NOW PERNELL Stop: 05/09/20 13:59 Dextrose/Sodium Chloride (D5 0.9% Ns) 1,000 mls @ 50 mls/hr IV .Q20H [facility] Ondansetron HCl (Ondansetron Pf 4 Mg/2 Ml Vial) 4 mg IVP Q6H PRN PRN Reason: Nausea/Vomiting - Allergies Allergies/Adverse Reactions: Allergies Allergy/AdvReac Type Severity Reaction Status Date / Time No Known Drug Allergies Allergy Verified 10/02/18 13:46 Surgery Consult: Results - Labs Result Diagrams: 05/09/20 04:47 05/09/20 04:47 Lab results: Laboratory Results WBC 4.1 thou/uL (4.8-10.8) L 05/09/20 04:47 RBC 3.93 mill/uL (4.70-6.10) L 05/09/20 04:47 Hgb 12.2 g/dL (14.0-18.0) L 05/09/20 04:47 Hct 36.4 % (42.0-52.0) L 05/09/20 04:47 MCV 92.6 fL (78.0-98.0) 05/09/20 04:47 MCH 31.2 pg (27.0-31.0) H 05/09/20 04:47 MCHC 33.7 g/dL (32.0-36.0) 05/09/20 04:47 RDW 13.5 % (11.5-14.5) 05/09/20 04:47 Plt Count 186 thou/uL (130-400) 05/09/20 04:47 MPV 9.0 fL (7.4-10.4) 05/09/20 04:47 Neutrophils % (Manual) 21 % (42-75) L 05/09/20 04:47 Band Neuts % (Manual) 32 % (5-11) H 05/09/20 04:47 Lymphocytes % (Manual) 29 % (21-51) 05/09/20 04:47 Monocytes % (Manual) 16 % (0-10) H 05/09/20 04:47 Eosinophils % (Manual) 2 % (0-10) 05/09/20 04:47 WBC Morphology SLIGHT 05/08/20 12:14 Sodium 137 mmol/L (136-145) 05/09/20 04:47 Potassium 3.2 mmol/L (3.5-5.1) L 05/09/20 04:47 Chloride 105 mmol/L (98-107) 05/09/20 04:47 Carbon Dioxide 23 mmol/L (23-31) 05/09/20 04:47 Anion Gap 12 mmol/L (10-20) 05/09/20 04:47 BUN 16 mg/dL (8.4-25.7) 05/09/20 04:47 Creatinine 1.00 mg/dL (0.7-1.3) 05/09/20 04:47 Estimated GFR (MDRD) 85 05/09/20 04:47 Glucose 144 mg/dL (83-110) H 05/09/20 04:47 Lactic Acid 2.0 mmol/L (0.5-2.2) 05/08/20 19:23 Calcium 8.5 mg/dL (7.8-10.44) 05/09/20 04:47 Total Bilirubin 1.6 mg/dL (0.2-1.2) H 05/08/20 12:14 Total Bilirubin 1.6 mg/dL (0.2-1.2) H 05/08/20 12:14 Direct Bilirubin 0.8 mg/dL (0.1-0.3) H 05/08/20 12:14 AST 30 U/L (5-34) 05/08/20 12:14 AST 31 U/L (5-34) 05/08/20 12:14 ALT 37 U/L (8-55) 05/08/20 12:14 ALT 38 U/L (8-55) 05/08/20 12:14 Alkaline Phosphatase 111 U/L (40-110) H 05/08/20 12:14 Alkaline Phosphatase 114 U/L (40-110) H 05/08/20 12:14 Troponin I 0.028 ng/mL (< 0.028) 05/08/20 12:14 Serum Total Protein 8.5 g/dL (5.8-8.1) H 05/08/20 12:14 Serum Total Protein 8.7 g/dL (5.8-8.1) H 05/08/20 12:14 Albumin 4.8 g/dL (3.4-4.8) 05/08/20 12:14 Albumin 4.9 g/dL (3.4-4.8) H 05/08/20 12:14 Globulin 3.6 g/dL (2.4-3.5) H 05/08/20 12:14 Albumin/Globulin Ratio 1.4 g/dL (1.2-2.2) 05/08/20 12:14 Lipase 16 U/L (8-78) 05/08/20 12:14 - Radiology Interpretation Abdominal x-ray Additional comments: CT scan abdomen and pelvis-independently viewed the images, I read the radiologist interpretation-patient had a right inguinal hernia. He also has evidence of his IVC filter as well as his endovascular repair for an endoleak. Left inguinal hernia area has a residual seroma from his repair last year. Surgery Consult: A/P - Problem (1) Right inguinal hernia Current Visit: Yes Code(s): K40.90 - UNIL INGUINAL HERNIA, W/O OBST OR GANGR, NOT SPCF RECUR Status: Acute Assessment and Plan: Patient presented to the emergency room with distention. Work-up was consistent with a bowel obstruction secondary to a right inguinal hernia. This was reduced in the emergency room last night. It is still reduced this morning. He has undergone NG tube decompression overnight and feels better this morning. Approximately 450 in the NG tube canister this morning. Covid test still pending. White blood cell count was elevated but has now reduced. Patient does have some bands this morning, but his exam is not peritoneal. Patient seem hemoconcentrated on his initial CBC. I will sign the patient out to the oncoming surgical team. Further decisions will be made concerning inpatient repair versus outpatient repair. Covid test is still pending.
[2020-05-09] MEDS ORDERED: Potassium Phosphate 30 MMOL in Sodium Chloride 0.9% 250 ML 250 ML IVPB SCH (08:00)
[2020-05-09] MEDS: Enoxaparin Sodium 40 MG/0.4 ML SYRINGE SC SCH (08:47)
[2020-05-09] MEDS ORDERED: Lidocaine 1% PF 5 ML VIAL ONE ×2 (09:15)
[2020-05-09] MEDS ORDERED: PROPOFOL 200 MG/20 ML VIAL ONE (09:15)
[2020-05-09] MEDS ORDERED: Rocuronium Bromide 10 MG/ML (10ML VIAL) ONE (09:15)
[2020-05-09] MEDS ORDERED: Succinylcholine Chloride 20 MG/ML 10 ml SYRINGE FS ONE (09:15)
--- NOTE | 2020-05-09 10:07 | RAD ---
EXAM: XR Abdomen 2 View PROVIDED CLINICAL HISTORY: Small bowel obstruction, hernia COMPARISON: 05/08/2020 FINDINGS: Linear bibasilar densities are seen probably attributable to atelectasis. Nasogastric tube remains in place. There are dilated gas-filled loops of small bowel with suggestion of differential air-fluid levels suggesting a mechanical partial small bowel obstruction. Gas is seen within the colon. Degree of gaseous distention of loops of small bowel is similar to the prior exam. IVC filter remains in place, and aortic endograft repair is again seen. Residual contrast is seen in urinary bladder. Surgical clips overlie each inguinal region. There are vascular calcifications in the iliac arteries IMPRESSION: 1. Nasogastric tube remains place. 2. Findings suggestive of a partial small bowel obstruction. However, there is gas within the colon.
[2020-05-09 10:41] LABS: SARS-CoV-2 MS2 Positive; SARS-CoV-2 N Gene Negative; SARS-CoV-2 S Gene Negative; SARS-CoV-2 by NAA Not Detected (NotDetected); SARS-CoV-2 orf1ab Negative
--- NOTE | 2020-05-09 10:43 | PDOC.HOSPP ---
- Subjective Encounter Date: 05/09/20 Encounter Time: 09:00 Subjective: Patient reports mild improvement in his abdominal pain this morning. Has not passed stool or flatus. Denies chest pain, SOB. Denies nausea. Chart and medications reviewed. - Objective Vital Signs & Weight: Vital Signs (12 hours) Temp Pulse Resp BP Pulse Ox 05/09/20 08:13 97.2 F L 67 14 132/72 94 L 05/09/20 04:02 98.1 F 64 18 114/68 93 L 05/09/20 00:06 98 F 66 18 123/71 95 Weight Weight 170 lb I&O: 05/08/20 05/09/20 05/10/20 06:59 06:59 06:59 Intake Total 1200 Output Total 725 Balance 475 Result Diagrams: 05/09/20 04:47 05/09/20 04:47 Hospitalist ROS - Review of Systems Constitutional: denies: fever, chills, sweats, weakness, malaise, other Eyes: denies: vision change Respiratory: denies: cough, shortness of breath Cardiovascular: denies: chest pain, palpitations Gastrointestinal: reports: abdominal pain. denies: nausea, vomiting Genitourinary: denies: dysuria Skin: denies: rash Neurological: denies: weakness, numbness - Medication Medications: Active Medications Generic Name Dose Route Start Last Admin Trade Name Freq PRN Reason Stop Dose Admin Enoxaparin Sodium 40 mg 05/09/20 09:00 05/09/20 08:47 Enoxaparin Sodium 40 Mg/0.4 Ml Syringe SC 40 mg 0900 PERNELL Administration Potassium Phosphate 30 mmol/ 260 mls @ 43.333 mls/hr 05/09/20 08:00 05/09/20 08:47 Sodium Chloride IVPB 05/09/20 13:59 260 mls NOW PERNELL Administration Dextrose/Sodium Chloride 1,000 mls @ 50 mls/hr 05/09/20 07:48 05/09/20 08:48 D5 0.9% Ns IV 1,000 mls .Q20H PERNELL Administration - Exam General Appearance: NAD, awake alert Eye: anicteric sclera ENT: normocephalic atraumatic, no oropharyngeal lesions, moist mucosa Neck: supple, symmetric, no JVD Heart: RRR, no murmur, no gallops, no rubs, normal peripheral pulses Respiratory: CTAB, no wheezes, no rales, no ronchi, normal chest expansion, no tachypnea, normal percussion Gastrointestinal: no guarding, no rigidity, tender to palpation, distended Gastrointestinal - other findings: hyperactive bowel sounds Extremities: no cyanosis, no clubbing, no edema Skin: normal turgor, no lesions, no rashes Neurological: no focal deficits Musculoskeletal: normal tone Psychiatric: normal affect, normal behavior, A&O x 3 Hosp A/P - Plan Mr. Correa is an 89 year-old male with a PMHx of HTN, AAA s/p endovascular repair, inguinal hernia, ventral hernia, BPH who presented to the ED with abdominal pain, nausea, and distention found to have a partial SBO. SBO: 89M presented with abdominal pain, nausea, distension found to have partial small bowel obstruction by CT scan. General surgery consulted who recommended conservative management at this time. Patient has ventral hernia which is reducible and inguinal hernia which was reduced by ED. Patient with NGT in place outputting approximately 450 ml this am. Patient reports mild improvement in his abdominal pain. Abdomen non-peritoneal. PLAN: -NGT, NPO -General surgery following -Serial abdominal exams -Follow with [facility] Hypokalmia: K 3.2 this am. Will monitor and replete as necessary. Elevated lactic acid: Lactic acid mildly elevated to 2.4 on admission, now down to 2.0. WBC 14.8, now down to 4.1. Hemoconcentrated labs on admission. Pt remains afebrile. No indication for abx at this time. Will continue to monitor. Hypertension: On home amlodipine. Will hold since BP wnl. BPH: Hx of BPH on tamsulosin. Will continue. DVT prophylaxis: Lovenox FULL CODE Case discussed with attending physician, Dr. Rosales.
[2020-05-09] MEDS ORDERED: Ketorolac Tromethamine 30 MG/ML VIAL IVP SCH (10:45)
[2020-05-09] MEDS ORDERED: Acetaminophen 500 MG TAB PO SCH (10:45)
[2020-05-09] MEDS ORDERED: CEFAZOLIN 2 GM in Premix Bag 1 BAG IVPB SCH (10:45)
[2020-05-09] MEDS ORDERED: Fentanyl 100 MCG/2 ML VIAL ONE (11:01)
[2020-05-09] MEDS ORDERED: Bupivacaine/Epinephrine 0.25% 30 ML VIAL ONE (12:20)
[2020-05-09] MEDS ORDERED: Ibuprofen 600 MG TAB PO PRN (12:21)
[2020-05-09] MEDS ORDERED: Acetaminophen 500 MG TAB PO PRN (12:21)
[2020-05-09] MEDS ORDERED: Ondansetron HCl/PF 4 MG/2 ML Vial IVP PRN (13:29)
[2020-05-09] MEDS ORDERED: Promethazine HCl 25 MG/ML VIAL SLOW IVP PRN (13:29)
[2020-05-09] MEDS ORDERED: Promethazine HCl 25 MG/ML VIAL IM PRN (13:29)
[2020-05-09] MEDS: Lactated Ringer's 1,000 ML IV SCH ×2 (14:20→20:27)
--- NOTE | 2020-05-09 14:40 | HP ---
HISTORY OF PRESENT ILLNESS: Hugo Correa is an 89-year-old male, who in July 2018 underwent left inguinal hernia repair with mesh, robot. Adhesiolysis was performed at that time, but he did well. Postoperatively, he had urinary retention, saw Dr. Fu, eventually underwent a UroLift, has been urinating without problems. 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 ALLERGIES: NONE. MEDICATIONS: 1. Flomax. 2. Atorvastatin. 3. Aspirin. 4. Amlodipine. SOCIAL HISTORY: Tobacco, none. Alcohol, none. PAST SURGICAL HISTORY: In July 2018, robot repair of left inguinal hernia. In 2006, Dr. Coreas performed infrarenal aortic aneurysm repair and repair of fistula between the aneurysms. IVC filter placement due to left lower extremity DVT. Residual endoleak type 3, treated with a midline incision. Past cholecystectomy through a midline incision. PAST MEDICAL HISTORY: BPH, urinary retention, TRAN secondary to that, resolved. Urinary retention resolved after UroLift. Stable coronary artery disease. PHYSICAL EXAMINATION: VITAL SIGNS: Height 5 feet 9 inches, weight 170 pounds, 25 BMI. The patient has NG tube in place. Temperature 98.5 degrees, pulse 65, blood pressure 127/67. HEAD, EARS, EYES, NOSE, AND THROAT: Unremarkable. LUNGS: Clear to auscultation. CARDIAC: Regular rate and rhythm without murmur or gallop. ABDOMEN: Soft, incisional hernia in umbilical area scar. It is reducible. Left inguinal hernia repair intact. Right inguinal hernia appreciated on Valsalva. ASSESSMENT AND PLAN: Incarcerated right inguinal hernia, admitted from the emergency room, reduced, now for repair. His abdomen is still distended and tympanitic. Abdominal x-rays revealed air-fluid levels. I do not think he is a good candidate for repeat robot inguinal hernia repair. Thus, we will plan open right inguinal hernia repair with mesh and incisional hernia repair, umbilical area. He understands risks and benefits, and consents. Job ID: [id number]
--- NOTE | 2020-05-09 15:33 | OP ---
DATE OF PROCEDURE: 05/09/2020 PREOPERATIVE DIAGNOSES: Incarcerated right inguinal hernia reduced in the emergency room last night and incisional hernia in umbilical area. POSTOPERATIVE DIAGNOSES: Incarcerated right inguinal hernia reduced in the emergency room last night and incisional hernia in umbilical area. PROCEDURES PERFORMED: Open PHS mesh repair; right inguinal hernia, pantaloon's. 6 cm Ventralight mesh repair of incisional hernia in umbilical area. ANESTHESIA: General, local 0.25% Marcaine with epinephrine 60 mL. FINDINGS: The patient's right inguinal hernia was pantaloon. Incisional hernia was about 5 cm. Small bowel adherent taken down from the abdominal wall. DESCRIPTION OF PROCEDURE: The patient was taken to the operating room where under general anesthesia, abdomen, scrotum, penis were prepared with ChloraPrep and draped in routine fashion. Ioban was used. Local anesthetic totaling skin and subcutaneous tissue about the operative site for ilioinguinal nerve block. Also infiltrating the spaces above and below Camper fascia. An incision was made in the right groin, carried through skin and subcutaneous tissue. External oblique identified, incised in the direction of its fibers to the external ring, dissecting the cord structures down with a Stephanie drain. Hernia sac dissected free open. Pursestring suture 0 Nurolon used to secure this to underlay portion of the PHS mesh, which was placed in the preperitoneal space and onlay portion placed in the floor of the canal. Slit made the mesh laterally reapproximated the mesh laterally to Poupart's ligament and inferiorly the mesh secured to Bob ligament with 0 Nurolon. Extended portion placed superiorly in the inguinal canal. Good repair appreciated. Good hemostasis noticed. External oblique closed with continuous suture of 3-0 Monocryl, Camper's with continuous suture of 3-0 Monocryl, skin with continuous suture of 4-0 Monocryl. Local anesthetic was infiltrated in space above and below Camper fascia. Dermabond applied. Incision was made about the umbilicus, carried down through the old scar skin, subcutaneous tissue, dissecting the hernia sac free identifying fascial edges, opened the abdominal cavity. There were some adhesions to the abdominal wall, taken down carefully and sharply with cautery. This was freed from the abdominal wall. Underlay portion of the Ventralight mesh 6 cm placed and the mesh secured with interrupted suture of 1 PDS, securing the mesh to the fascial approximation, removing the straps, securing the subcutaneous tissues with 3-0 Monocryl, skin with subdermal 4-0 Monocryl and Dermaglue applied. The patient tolerated the procedure well. Job ID: [id number]
[2020-05-09] MEDS: Ibuprofen 200 MG TAB PO PRN (20:26)
[2020-05-09] MEDS: traMADol HCl 50 MG TAB PO PRN (20:27)
[2020-05-09] MEDS ORDERED: Atorvastatin Calcium 20 MG TAB PO SCH (21:00)
--- NOTE | 2020-05-09 23:49 | CON ---
DATE OF CONSULTATION: 05/09/2020 REQUESTING PHYSICIAN: Solomon Rosales MD REASON FOR CONSULTATION: Abnormal CT of the esophagus. HISTORY OF PRESENT ILLNESS: Hugo Correa is a very pleasant 89-year-old man, who was admitted to the hospital last night with an incarcerated right inguinal hernia. This was reduced in the emergency room and today, he underwent hernia repair in the OR with Dr. Cui. He had a history of left hernia repair last year. Upon arrival, the patient had presented with severe generalized abdominal pain as well as nausea and multiple episodes of emesis. This had resolved after hernia reduction in the ER yesterday but on admission, CT scan of the abdomen and pelvis demonstrated not only the incarcerated right-sided hernia, but also thickening of the distal esophagus and at the gastric cardia, with followup endoscopy recommended. The patient is feeling pretty good, waking up from surgery this afternoon. He is not having any significant abdominal pain. No further nausea or vomiting. Nasogastric tube has been removed. He reports no significant chronic gastrointestinal symptoms. No chronic nausea, vomiting, or even heartburn, but upon questioning, he does endorse occasional mild dysphagia to solids, never having to regurgitate anything. He has never undergone EGD that he can recall. REVIEW OF SYSTEMS: Full review of systems including constitutional, head, eyes, ears, nose, throat, GI, , cardiovascular, respiratory, musculoskeletal, neurologic systems is negative except as noted in the HPI. PAST MEDICAL HISTORY: Coronary artery disease, hypertension, abdominal aortic aneurysm, hyperlipidemia, left inguinal hernia surgery, right inguinal hernia surgery, IVC filter, BPH. SOCIAL HISTORY: No smoking or alcohol use. FAMILY HISTORY: Noncontributory. ALLERGIES: NO KNOWN DRUG ALLERGIES. OUTPATIENT MEDICATIONS: 1. Flomax. 2. Atorvastatin. 3. Aspirin. 4. Amlodipine. PHYSICAL EXAMINATION: VITAL SIGNS: Temperature 97.6, pulse 74 blood pressure 137/70, 96% oxygen saturation on room air. GENERAL: 89-year-old man, lying in bed comfortably, in no distress. SKIN: No jaundice and no rashes were palpable. EYES: No scleral icterus. Extraocular movements intact. ENT: Mucous membranes moist. No oral lesions. LYMPH: No submandibular or supraclavicular lymphadenopathy. THYROID: Nontender to palpation. HEART: Regular rate and rhythm. LUNGS: Clear to auscultation bilaterally. ABDOMEN: Nondistended. Bowel sounds are hypoactive. Abdomen is soft and nontender to palpation. Surgical dressing in place. EXTREMITIES: No peripheral edema. VESSELS: Radial pulses 2+ bilaterally. NEURO: Cranial nerves 2 through 12 intact bilaterally. No focal deficits. LABORATORY STUDIES: WBC 4.1, hemoglobin 12.2, platelets 186. Sodium 137, potassium 3.2, BUN 16, creatinine 1.00, glucose 144, total bilirubin 1.6, direct bilirubin 0.8, alkaline phosphatase 111, AST 30, ALT 38. Troponin 0.028. Albumin 4.8. COVID PCR negative. IMAGING STUDIES: CT of the abdomen and pelvis from yesterday as detailed in the HPI. ASSESSMENT AND PLAN: 1. Abnormal CT of the esophagus, suggesting distal esophageal thickening. 2. Dysphagia, mild, chronic, nonprogressive. This CT finding was really incidental to his presentation. It was in the context of acute repeated vomiting over the prior day as a consequence of bowel obstruction from his inguinal hernia, suspect this finding is incidental. On the other hand, he does endorse some mild chronic dysphagia upon questioning. We discussed the likelihood of distal erosive esophagitis versus more serious pathology such as neoplasia. Further investigation is recommended. We will go ahead and plan for diagnostic esophagogastroduodenoscopy tomorrow. Further recommendations following endoscopy. The patient and his daughter desire to proceed. Thank you for the consultation. Please call at anytime with questions or concerns. Job ID: [id number]
[2020-05-10 06:38] LABS: ALT (SGPT) 19 U/L (8-55); AST (SGOT) 18 U/L (5-34); Alkaline Phosphatase 67 U/L (40-110); Anion Gap 11 mmol/L (10-20); BUN (Urea Nitrogen) 13 mg/dL (8.4-25.7); Bilirubin, Total 0.6 mg/dL (0.2-1.2); Calc. Creatinine Clearance 56 mL/min (70-130); Calcium 8.3 mg/dL (7.8-10.44); Carbon Dioxide 23 mmol/L (23-31); Chloride 109 mmol/L (98-107); Estimated GFR-MDRD 87; Globulin 2.5 g/dL (2.4-3.5); Glucose 106 mg/dL (83-110); Potassium 3.4 mmol/L (3.5-5.1); Protein, Total 5.5 g/dL (5.8-8.1); Sodium 140 mmol/L (136-145)
[2020-05-10 07:02] LABS: Band 39 % (5-11); Hemoglobin 11.3 g/dL (14.0-18.0); Lymphocytes 26 % (21-51); MDiff Complete? YES; Mean Corpuscular HGB CONC 33.4 g/dL (32.0-36.0); Mean Corpuscular Volume 92.9 fL (78.0-98.0); Mean Platelet Volume 8.5 fL (7.4-10.4); Monocytes 6 % (0-10); Neutrophil 29 % (42-75); Platelet Count 190 thou/uL (130-400); RBC Distribution Width 13.4 % (11.5-14.5); Red Blood Cell (RBC) Count 3.63 mill/uL (4.70-6.10); White Blood Cell (WBC) Count 4.7 thou/uL (4.8-10.8)
[2020-05-10] MEDS: Enoxaparin Sodium 40 MG/0.4 ML SYRINGE SC SCH (08:03)
[2020-05-10] MEDS: Tamsulosin HCl 0.4 MG CAP PO SCH (08:03)
[2020-05-10] MEDS: Polyethylene Glycol 3350 17 GM Packet PO SCH (08:06)
[2020-05-10] MEDS: Lactated Ringer's 1,000 ML IV SCH ×2 (08:06→18:41)
[2020-05-10] MEDS ORDERED: Aspirin 81 mg Enteric Coated Tablet PO SCH (09:00)
[2020-05-10] MEDS ORDERED: Amlodipine 5 MG TAB PO SCH (09:00)
[2020-05-10] MEDS ORDERED: Potassium Phosphate 30 MMOL in Sodium Chloride 0.9% 250 ML 250 ML IVPB SCH (10:30)
--- NOTE | 2020-05-10 11:19 | PDOC.HOSPP ---
- Subjective Encounter Date: 05/10/20 Encounter Time: 11:18 Subjective: No overnight events. Patient now postop day 1 status post hernia repair and lysis of adhesions with Dr. Cui. Patient reports improvement in his abdominal pain. Reports he has not passed flatus since surgery. Denies fever, night sweats, chills. Denies chest pain, shortness of breath. Chart and medications reviewed. Family at bedside all questions answered. - Objective Vital Signs & Weight: Vital Signs (12 hours) Temp Pulse Resp BP Pulse Ox 05/10/20 08:00 95 05/10/20 07:43 97.9 F 69 12 130/74 95 05/10/20 03:33 98.9 F 73 16 123/62 92 L 05/10/20 03:00 98.6 F 80 18 138/74 93 L 05/09/20 23:35 98.9 F 78 16 135/69 92 L Weight Weight 170 lb I&O: 05/09/20 05/10/20 05/11/20 06:59 06:59 06:59 Intake Total 1200 1440 Output Total 725 225 Balance 475 1215 Result Diagrams: 05/10/20 05:02 05/10/20 05:02 Hospitalist ROS - Review of Systems Constitutional: denies: fever, chills, sweats Eyes: denies: vision change Respiratory: denies: cough, shortness of breath Cardiovascular: denies: chest pain, palpitations, orthopnea Gastrointestinal: reports: abdominal pain. denies: nausea, vomiting Genitourinary: denies: dysuria Skin: denies: rash Neurological: denies: weakness, numbness - Medication Medications: Active Medications Generic Name Dose Route Start Last Admin Trade Name Freq PRN Reason Stop Dose Admin Enoxaparin Sodium 40 mg 05/09/20 09:00 05/10/20 08:03 Enoxaparin Sodium 40 Mg/0.4 Ml Syringe SC 40 mg 0900 PERNELL Administration Lactated Ringer's 1,000 mls @ 100 mls/hr 05/09/20 12:30 05/10/20 08:06 Lactated Ringer's IV Not Given .Q10H PERNELL Ibuprofen 400 mg 05/09/20 12:55 05/09/20 20:26 Ibuprofen 200 Mg Tab PO 400 mg Q6H PRN Administration Pain Polyethylene Glycol 17 gm 05/10/20 09:00 05/10/20 08:06 Polyethylene Glycol 3350 17 Gm Packet PO Not Given DAILY PERNELL Sodium Chloride 10 ml 05/09/20 21:00 05/10/20 08:06 Flush - Normal Saline 10 Ml Syringe IVF Not Given Q12HR PERNELL Tamsulosin HCl 0.4 mg 05/10/20 09:00 05/10/20 08:03 Tamsulosin Hcl 0.4 Mg Cap PO 0.4 mg DAILY PERNELL Administration Tramadol HCl 50 mg 05/09/20 12:21 05/09/20 20:27 Tramadol Hcl 50 Mg Tab PO 50 mg Q4H PRN Administration Pain - Exam General Appearance: NAD, awake alert Eye: anicteric sclera ENT: normocephalic atraumatic Neck: supple, symmetric, no JVD Heart: RRR, no murmur, no gallops, no rubs, normal peripheral pulses Respiratory: CTAB, no wheezes, no rales, no ronchi, normal chest expansion, no tachypnea, normal percussion Gastrointestinal: no guarding, tender to palpation, distended Extremities: no cyanosis, no clubbing, no edema Skin: normal turgor, no lesions, no rashes Neurological: normal sensation to touch, no focal deficits Musculoskeletal: diffuse muscle atrophy Psychiatric: normal affect, normal behavior, A&O x 3 Hosp A/P - Plan Mr. Correa is an 89 year-old male with a PMHx of HTN, AAA s/p endovascular repa ir, inguinal hernia, ventral hernia, BPH who presented to the ED with abdominal pain, nausea, and distention found to have a partial SBO and incarcerated hernia. SBO with Incarcerated Hernia: 89M presented with abdominal pain, nausea, distension found to have partial smal l bowel obstruction by CT scan. Patient has ventral hernia which is reducible and inguinal hernia which was reduced by ED. NGT placed by ED. General surgery consulted who took the patient for hernia repair on 05/09/2020. Patient reports mild improvement in his abdominal pain. Abdomen distended, but non-peritoneal. Patient reports he has not passed flatus since surgery, will obtain KUB to monitor. PLAN: -Encouraged IS -General surgery following -Serial abdominal exams -KUB Esophagitis CT abdomen pelvis showed thickening of the distal esophagus and gastric cardia. GI consulted who recommended follow-up EGD to rule out neoplasm. Patient planned for EGD on 05/10. PLAN: -NPO at midnight -EGD -GI following, recs appreciated Hypokalmia: K 3.2 on 05/09/20. Will monitor and replete as necessary. Elevated lactic acid: Lactic acid mildly elevated to 2.4 on admission, now down to 2.0. WBC 14.8, now down to 4.1. Hemoconcentrated labs on admission. Pt remains afebrile with no white count. Will continue to monitor. Hypertension: On home amlodipine. Will hold since BP wnl. BPH: Hx of BPH on tamsulosin. Will continue. DVT prophylaxis: Lovenox FULL CODE Case discussed with attending physician, Dr. Rosales.
[2020-05-10] MEDS ORDERED: Ondansetron PF 4 MG/2 ML Vial ONE (11:39)
[2020-05-10] MEDS ORDERED: Lidocaine 1% PF 5 ML VIAL ONE (11:39)
[2020-05-10] MEDS ORDERED: Succinylcholine Chloride 20 MG/ML 10 ml SYRINGE FS ONE (11:39)
[2020-05-10] MEDS ORDERED: PROPOFOL 200 MG/20 ML VIAL ONE (11:39)
--- NOTE | 2020-05-10 13:52 | RAD ---
ABDOMEN ONE VIEW: 05/10/20 HISTORY: Abdominal pain, status post hernia repair, small bowel obstruction. COMPARISON: Previous day. FINDINGS/IMPRESSION: There has been interval removal of the nasogastric tube since the previous day's exam. IVC filter and aortic endovascular stent is again seen. There is air in loops of small and large bowel as well as t he rectum. Some of the small bowel loops are dilated. Possibility of a partial small bowel obstructio n cannot be excluded. POS: AH
[2020-05-10] MEDS ORDERED: Potassium Chloride 20 MEQ TAB PO SCH (14:45)
--- NOTE | 2020-05-10 15:14 | PRG ---
DATE OF SERVICE: 05/10/2020 SUBJECTIVE: Madeline is doing well today. He underwent upper endoscopy which was normal today. He has been tolerating his diet. He has not had any nausea or vomiting. He has had a bowel movement. OBJECTIVE: LUNGS: Clear to auscultation. CARDIAC: Regular rate and rhythm without murmur or gallop. ABDOMEN: Soft, mildly distended, tympanitic from recent endoscopy today. EXTREMITIES: Unremarkable. Surgical wounds periumbilical and right groin well healed. ASSESSMENT AND PLAN: Doing well. We will advance diet as tolerated. He is voiding well. He has had a bowel movement. At this point, the patient more like can be discharged home tomorrow. Diet and activity as tolerated. Job ID: [id number]
--- NOTE | 2020-05-10 19:33 | OP ---
DATE OF PROCEDURE: 05/10/2020 PROCEDURE PERFORMED: Esophagogastroduodenoscopy (diagnostic). INDICATIONS FOR PROCEDURE: Abnormal GI imaging showing thickening of the distal esophagus, dysphagia. DESCRIPTION OF PROCEDURE: After the risks and benefits of the procedure were explained to the patient including risks of bleeding, infection, perforation, reactions to anesthesia, aspiration and/or pain, informed consent was obtained. The patient was then taken to the endoscopy suite, where general anesthesia was administered followed by endotracheal tube intubation. Once the patient was adequately sedated and intubated, he was maneuvered into the left lateral decubitus position in preparation for the upper endoscopy. Once in adequate position, the standard gastroscope was introduced into the mouth with intubation of the esophagus, stomach, and the proximal small intestines with the findings listed below. The patient tolerated the procedure well with no immediate perioperative complications. Upon conclusion of the procedure, the patient was extubated and transferred to PACU in satisfactory condition. FINDINGS: Esophagus: Normal-appearing mucosa was seen in the proximal esophagus, however, there were 2 small ulcerations seen at the junction between the proximal and mid esophagus. In the distal mid esophagus and including the distal esophagus itself, there were multiple linear ulcerations extending proximally from the gastroesophageal junction measuring approximately 6 to 10 cm in length. They did affect multiple folds within the esophagus, but were not circumferential. They did exhibit some mild friability with mild oozing of blood with passage of the gastroscope, but there was no evidence of recent bleeding or high-risk stigmata of future bleeding. The diaphragmatic pinch was seen at 41 cm, while the gastroesophageal junction was seen at 40 cm denoting a 1 cm hiatal hernia. Otherwise, there was no evidence of mass lesions or neoplasm in this region. Stomach: A patch of increased mucosal erythema was seen in the gastric fundus measuring approximately 2 cm in diameter. Along one aspect of this red patch, there was a small blood clot that was adherent and was unable to be removed with aggressive measures; however, it did not exhibit evidence of any active bleeding, otherwise normal-appearing mucosa was seen in the gastric cardia, proximal fundus, body, greater curvature, antrum, and incisura. There was no evidence of erosions, ulcerations, mass lesions, or active bleeding. A small hiatal hernia was seen on gastric retroflexion. Duodenum: Normal-appearing mucosa was seen in both the duodenal bulb and second portion of the duodenum. There was no evidence of erosions, ulcerations, mass lesions, or active/recent bleeding. IMPRESSION: 1. LA grade C reflux-mediated erosive esophagitis. 2. 1 cm hiatal hernia. 3. 2 cm patch of mucosal erythema in the distal fundus with an adherent clot, likely secondary to recent nausea, vomiting/retching. 4. No neoplasm or malignancy was seen during this examination. RECOMMENDATIONS: 1. Would continue the patient on pantoprazole 40 mg twice daily, but can transfer to an oral formulation. 2. Pain control per primary team. 3. Would maintain strict anti-reflux precautions while the patient is hospitalized (maintaining an upright posture after meals, avoiding eating or drinking with 2 to 3 hours of lying down). 4. Would continue to trend the patient's H and H and transfuse as necessary to maintain an H and H of 7/21. 5. Continue to monitor clinically for signs of active GI bleeding. Given the lack of evidence of a possible malignancy in the distal esophagus and a more incidental finding of this on CT, we will sign off at this time. Please call with any additional questions. Job ID: [id number]
[2020-05-10] MEDS: traMADol HCl 50 MG TAB PO PRN (20:15)
[2020-05-10] MEDS: Ibuprofen 200 MG TAB PO PRN (20:16)
[2020-05-11] MEDS: Lactated Ringer's 1,000 ML IV SCH (04:11)
[2020-05-11 05:57] LABS: Hemoglobin 10.7 g/dL (14.0-18.0); Mean Corpuscular HGB CONC 33.5 g/dL (32.0-36.0); Mean Corpuscular Hemoglobin 30.9 pg (27.0-31.0); Mean Corpuscular Volume 92.2 fL (78.0-98.0); Platelet Count 182 thou/uL (130-400); RBC Distribution Width 13.3 % (11.5-14.5); Red Blood Cell (RBC) Count 3.46 mill/uL (4.70-6.10); White Blood Cell (WBC) Count 4.5 thou/uL (4.8-10.8)
[2020-05-11 06:35] LABS: Band 32 % (5-11); Eosinophils 4 % (0-10); Lymphocytes 17 % (21-51); MDiff Complete? YES; Monocytes 15 % (0-10); Neutrophil 32 % (42-75)
[2020-05-11 06:53] LABS: Anion Gap 11 mmol/L (10-20); BUN (Urea Nitrogen) 12 mg/dL (8.4-25.7); Calc. Creatinine Clearance 61 mL/min (70-130); Calcium 8.2 mg/dL (7.8-10.44); Carbon Dioxide 24 mmol/L (23-31); Chloride 108 mmol/L (98-107); Estimated GFR-MDRD Greater than 90; Glucose 99 mg/dL (83-110); Potassium 3.4 mmol/L (3.5-5.1); Sodium 140 mmol/L (136-145)
[2020-05-11 08:16] LABS: Magnesium 1.6 mg/dL (1.6-2.6); Phosphorus 2.2 mg/dL (2.3-4.7)
[2020-05-11] MEDS: Enoxaparin Sodium 40 MG/0.4 ML SYRINGE SC SCH (09:15)
[2020-05-11] MEDS: Polyethylene Glycol 3350 17 GM Packet PO SCH (09:15)
[2020-05-11] MEDS: Tamsulosin HCl 0.4 MG CAP PO SCH (09:15)
[2020-05-11] MEDS ORDERED: PHOS-NAK 1 PKT PACK PO SCH (11:15)
--- NOTE | 2020-05-11 11:42 | RAD ---
PORTABLE CHEST 1 VIEW: Date: 05/11/2020 Time: 0957 hours HISTORY: Bandemia. COMPARISON: 05/23/2007. FINDINGS/IMPRESSION: The heart size is normal. The aorta is tortuous. There are patchy opacities in the lung bases with pr obable small effusions. Findings are suspicious for pneumonia. POS: OFF
[2020-05-11] MEDS ORDERED: Potassium Chloride 20 MEQ TAB PO SCH (12:00)
[2020-05-11] MEDS ORDERED: Amoxicillin/Potassium Clav 875 MG TAB PO SCH ×2 (12:30→21:00)
[2020-05-11 13:30] LABS: Bilirubin Negative (Negative); Blood, Urine 1+ (Negative); Clarity Clear (Clear); Glucose, Urine (Dipstick) Normal (Negative); Ketone, Urine Negative (Negative); Leukocyte Negative Leu/uL (Negative); Nitrite Negative (Negative); Protein, Urine (Dipstick) 100 mg/dL (Neg-Trace); Specific Gravity, Urine 1.034 (1.002-1.036); Urobilinogen Normal mg/dL (Less than 2); pH, Urine 5.5 (5.0-9.0)
[2020-05-11 13:35] LABS: Bacteria/HPF 1+ HPF (None Seen); Urine Culture Reflex No No
--- NOTE | 2020-05-11 14:21 | PRG ---
DATE OF SERVICE: 05/11/2020 SUBJECTIVE: Mr. Correa is doing well today. He is tolerating his diet. He is not having any nausea or vomiting. He has had bowel movements and passed flatus. OBJECTIVE: LUNGS: Clear to auscultation. CARDIAC: Regular rate and rhythm without murmur or gallop. ABDOMEN: Soft and nontender. LABORATORY DATA: His hemoglobin is 10, white count 4, and potassium 3.4. ASSESSMENT AND PLAN: The patient is doing well. He can be discharged home. His diet and activity as tolerated. Follow up with me in 2 to 3 weeks. He can shower and bathe with open wounds. Job ID: [id number]
[2020-05-11 15:58] VITALS: BP 166/83; TEMP 98.2
--- NOTE | 2020-05-11 18:15 | DIS ---
DATE OF ADMISSION: 05/08/2020 DATE OF DISCHARGE: 05/11/2020 DISCHARGE DIAGNOSES: As of the following; 1. Small bowel obstruction with incarcerated hernia. 2. Esophagitis. 3. Hypokalemia. 4. Elevated lactic acid. 5. Hypertension. 6. Benign prostatic hyperplasia. 7. Aspiration pneumonia. HOSPITAL COURSE: The patient is an 89-year-old male, who initially presented to the hospital on 05/08 with abdominal pain, nausea, and vomiting. At this time, he had a CT, which indicated a high-grade partial small bowel obstruction with a transition in the right inguinal hernia. At this time, GI and Surgery were consulted. The patient's abdominal CT also indicated thickening of the distal esophagus and at the gastric cardia. At this time, by Surgery he underwent an open PHS mesh repair right inguinal hernia and a 6 cm ventral light mesh repair of incisional hernia in the umbilical area. 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 The patient continued to improve. He had a bowel movement. He was able to tolerate diet. Surgery was okay to discharge the patient. GI recommended Protonix 40 mg daily. The patient did have bandemia that was noted. I went ahead and did a chest x-ray, which indicated possible right lower lung infiltrate. The patient was afebrile. At this time, he was started on prophylactic antibiotics and I have asked the family at this time at the bedside to follow the patient up with his primary care doctor next week for some blood work to make sure that his bandemia has resolved. The patient is discharged. HOME MEDICATIONS: Will be as of the following; 1. Augmentin 875 one p.o. b.i.d. 2. Protonix 40 mg daily. 3. Florastor 250 mg daily. 4. Norvasc 5 mg daily. 5. Aspirin 81 mg daily. 6. Atorvastatin 20 mg daily. 7. Tamsulosin 0.4 mg daily. PHYSICAL EXAMINATION: VITAL SIGNS: On discharge; temperature 98.0, heart rate 98, respiratory rate 18, O2 saturations 93% on room air, and blood pressure 156/74. GENERAL: He is awake, alert, and oriented x3. Does not appear in distress. CV: S1 and S2 present. No murmurs, rubs, or gallops. Again, he is stable. He has been ambulating to the bathroom. I have advised the family to stay with the patient and monitor him for the next 24 to 48 hours. Job ID: [id number]
== END 2020-05-11 16:25 | disposition home or self-care (01) | DRG 350 ==
LOC: ERS 11:46 → SURG A 15:30
PROVIDERS: ADMIT Student in an Organized Health Care Education/Training Program; ATTEND Student in an Organized Health Care Education/Training Program
PROC: 0YU50JZ Supplement Right Inguinal Region with Synthetic Substitute, Open Approach (ICD-10-PCS; principal; 2020-05-09)
PROC: 0WUF0JZ Supplement Abdominal Wall with Synthetic Substitute, Open Approach (ICD-10-PCS; 2020-05-09)
PROC: 0DJ08ZZ Inspection of Upper Intestinal Tract, Via Natural or Artificial Opening Endoscopic (ICD-10-PCS; 2020-05-10)
DX: K40.30 Unilateral inguinal hernia, with obstruction, without gangrene, not specified as recurrent (principal); J69.0 Pneumonitis due to inhalation of food and vomit; K22.10 Ulcer of esophagus without bleeding; R33.8 Other retention of urine; I25.10 Atherosclerotic heart disease of native coronary artery without angina pectoris; I10 Essential (primary) hypertension; N40.1 Benign prostatic hyperplasia with lower urinary tract symptoms; K22.8 Other specified diseases of esophagus; K43.2 Incisional hernia without obstruction or gangrene; E78.00 Pure hypercholesterolemia, unspecified; K21.00 Gastro-esophageal reflux disease with esophagitis, without bleeding; K44.9 Diaphragmatic hernia without obstruction or gangrene; E78.5 Hyperlipidemia, unspecified; R13.10 Dysphagia, unspecified; Z20.828 Contact with and (suspected) exposure to other viral communicable diseases; R79.89 Other specified abnormal findings of blood chemistry; E87.6 Hypokalemia; Z98.890 Other specified postprocedural states
CPT/HCPCS: 36415; 71045; 74018; 74019; 74177; 80048; 80053; 81001; 83605; 83690; 83735; 84100; 84484; 85025; 87635; 96374; 96375; C1781; J0690; J1650; J2270; J2405; J2704; J3010; J7050; Q9967; U0003